=== PATIENT | male | born 1975 | race Two or more races ===

== ENCOUNTER → 2016-12-11 | Outpatient (REF) | payer OTHER ==
[2016-12-11 10:47] LABS: BASO % 0.5 % (0.0-1.0); EOS # 0.1 K/mm3 (0.0-0.50); EOS % 2.3 % (0.0-3.0); LARGE UNSTAINED CELL # 0.1 K/mm3 (0.0-0.4); LARGE UNSTAINED CELL % 2.2 % (0.0-4.0); LYMPH # 1.7 K/mm3 (1.5-4.5); LYMPH % 26.5 % (24.0-44.0); MEAN CORPUSCULAR HEMOGLOBIN 29.1 pg (27.0-33.0); MEAN CORPUSCULAR HGB CONC 33.7 g/dl (32.0-36.5); MEAN CORPUSCULAR VOLUME 86.2 fl (80.0-96.0); MONO # 0.5 K/mm3 (0.0-0.8); MONO % 7.9 % (0.0-5.0); NEUTROPHILS # 3.5 K/mm3 (1.8-7.7); NEUTROPHILS % 60.7 % (36.0-66.0); PLATELET COUNT, AUTOMATED 226 k/mm3 (150-450); RED CELL DISTRIBUTION WIDTH 12.8 % (11.5-14.5); WHITE BLOOD COUNT 5.8 K/mm3 (4.0-10.0)
[2016-12-11 10:59] LABS: ALBUMIN 3.8 GM/DL (3.2-5.2); ALBUMIN/GLOBULIN RATIO 1.27 (1.00-1.93); ALKALINE PHOSPHATASE 64 U/L (45-117); ALT/SGPT 45 U/L (12-78); ANION GAP 8 MEQ/L (8-16); AST/SGOT 15 U/L (15-37); BILIRUBIN,TOTAL 0.4 MG/DL (0.2-1.0); BLOOD UREA NITROGEN 19 MG/DL (7-18); CALCIUM LEVEL 8.9 MG/DL (8.5-10.1); CARBON DIOXIDE LEVEL 28 MEQ/L (21-32); CHLORIDE LEVEL 106 MEQ/L (98-107); CHOLESTEROL LEVEL 159 MG/DL (<200); CREATININE FOR GFR 1.01 MG/DL (0.70-1.30); GLOMERULAR FILTRATION RATE > 60.0 (>60); GLUCOSE, FASTING 88 MG/DL (70-105); POTASSIUM SERUM 4.3 MEQ/L (3.5-5.1); SODIUM LEVEL 142 MEQ/L (136-145); TOTAL PROTEIN 6.8 GM/DL (6.4-8.2); TRIGLYCERIDES LEVEL 139 MG/DL (<150)
== END ==
LOC: M SFHCPLAZ 08:44
PROVIDERS: ATTEND Physician Assistant
DX: R53.83 Other fatigue (principal); Z13.220 Encounter for screening for lipoid disorders

== ENCOUNTER → 2017-02-22 | Outpatient (CLI) | payer OTHER ==
--- NOTE | 2017-03-04 08:13 | SLEEPCENT ---
DATE OF PROCEDURE: 02/22/2017 ORDERED BY: ZOHRA Corbin Nocturnal polysomnography was performed for the titration of pressure therapy in this patient with obstructive sleep apnea syndrome, apnea hypopnea index of 10. For testing, the patient was fit with a Vides and [place], Simplus full face mask of medium size. 4 cm of water were applied to the circuit and the lights were extinguished. 7 hours and 15 minutes of data were reviewed. There were 353 minutes of sleep identified. Sleep latency was prolonged at 54 minutes. Rapid eye movement (REM) latency was mildly prolonged at 105 minutes. Sleep architecture improved with pressure therapy. There 2 REM periods appreciated. Overall sleep efficiency was 82%. EKG showed a sinus rhythm with an average heart rate of 60 beats per minute. EEG showed normal waveforms for awake and sleep. Respiratory events were best palliated with CPAP at pressure of +8. Remaining measures of sleep physiology were normal. IMPRESSION: Obstructive sleep apnea syndrome (G47.33). RECOMMENDATION: Nightly use of pressure therapy 8 cm of water.
== END ==
LOC: M SLEEP 20:00
PROVIDERS: ATTEND Nurse Practitioner Adult Health
DX: G47.33 Obstructive sleep apnea (adult) (pediatric) (principal)

== ENCOUNTER → 2017-11-27 | Outpatient (REF) | payer OTHER ==
[2017-11-27 15:41] LABS: ESTIMATED AVERAGE GLUCOSE 117 MG/DL (60-110); HEMOGLOBIN A1c 5.7 %
== END ==
LOC: M SFHCPLAZ 09:26
DX: Z00.00 Encounter for general adult medical examination without abnormal findings (principal)
CPT/HCPCS: 83036

== ENCOUNTER → 2018-05-01 | Outpatient (CLI) | payer OTHER | LOC: M WUC 16:26 | DX: M25.522 Pain in left elbow (principal) | CPT/HCPCS: 73080 ==

== ENCOUNTER → 2019-02-19 | Outpatient (CLI) | payer OTHER ==
--- NOTE | 2019-02-19 19:53 | REP ---
Clinical: Trauma. Crush injury second digit. Technique: AP, lateral, bilateral oblique views right second digit . Findings: The osseous structures and joint spaces are intact and normal. There is no evidence for acute fracture or dislocation. Surrounding soft tissues are unremarkable. No subcutaneous emphysema or radiodense foreign body. Impression: No acute fracture or dislocation. Electronically Signed by Vidal Trotter MD 02/19/2019 07:44 P
== END ==
LOC: M WUC 19:06
PROVIDERS: ATTEND Physician Assistant
DX: S67.191A Crushing injury of left index finger, initial encounter (principal); X58.XXXA Exposure to other specified factors, initial encounter; Y92.9 Unspecified place or not applicable

== ENCOUNTER 2019-04-17 17:06 | Emergency (ER) | payer OTHER ==
[~2019-04-17] VITALS: Ht 182.9 cm; Wt 107.2 kg
[2019-04-17] MEDS ORDERED: NS 1,000 ML IV ONE (18:00)
[2019-04-17] MEDS ORDERED: KETOROLAC 30 MG/ML VIAL (J1885) IV ONE (18:00)
[2019-04-17 18:32] LABS: BASO % 0.3 % (0.0-1.0); EOS # 0.1 10^3/uL (0.0-0.50); EOS % 0.6 % (0.0-3.0); HEMATOCRIT 42.5 % (42.0-52.0); HEMOGLOBIN 14.1 g/dl (13.5-17.5); LYMPH # 1.3 10^3/uL (1.5-4.5); LYMPH % 11.4 % (24.0-44.0); MEAN CORPUSCULAR HEMOGLOBIN 28.5 pg (27.0-33.0); MEAN CORPUSCULAR HGB CONC 33.2 g/dl (32.0-36.5); MONO # 0.9 10^3/uL (0.0-0.8); MONO % 7.9 % (0.0-5.0); NEUTROPHILS # 8.9 10^3/uL (1.8-7.7); NEUTROPHILS % 79.4 % (36.0-66.0); PLATELET COUNT, AUTOMATED 216 10^3/uL (150-450); RED BLOOD COUNT 4.94 10^6/uL (4.30-6.10); WHITE BLOOD COUNT 11.2 10^3/uL (4.0-10.0)
[2019-04-17] MEDS ORDERED: ISOVUE-370 76% 100ML VIAL (Q9967) As Ordered ONE (18:35)
[2019-04-17 19:26] VITALS: BP 124/62
--- NOTE | 2019-04-17 19:34 | REPVR ---
EXAM: CT Abdomen and Pelvis With Contrast EXAM DATE/TIME: 04/17/2019 6:37 PM CLINICAL HISTORY: 43 years old, male; Constipation; Abdominal pain; Other: Llq; Additional info: Llq/groin pain with constipation TECHNIQUE: Imaging protocol: Axial computed tomography images of the abdomen and pelvis with intravenous contrast. Coronal and sagittal reformatted images were created and reviewed. Radiation optimization: All CT scans at this facility use at least one of these dose optimization techniques: automated exposure control; mA and/or kV adjustment per patient size (includes targeted exams where dose is matched to clinical indication); or iterative reconstruction. Contrast material: ISOVUE 370;Contrast volume: 100 ml;Contrast route: IV; COMPARISON: CR Pelvis, complete 08/31/2014 10:02 AM FINDINGS: Lungs: Linear stranding and groundglass at the lung bases, likely due to atelectasis and/or scarring. Liver: Unremarkable. Gallbladder and bile ducts: No radiodense gallstones. No biliary ductal dilatation. Pancreas: Unremarkable. Spleen: Unremarkable. Adrenals: Unremarkable. Kidneys and ureters: 6 mm low density left renal lesion, too small to characterize. No radiodense calculi. No hydronephrosis. Stomach and bowel: Focal area of wall thickening and associated pericolonic stranding in the sigmoid colon in a region containing multiple diverticula. No obstruction. No pneumatosis. Appendix: Normal. Intraperitoneal space: Trace nonspecific free pelvic fluid, likely reactive. No organized fluid collection. No free air. Vasculature: Unremarkable. No aneurysm. Lymph nodes: No pathologically enlarged lymph nodes. Bladder: Unremarkable. Reproductive: Unremarkable. Bones/joints: No acute osseous abnormality. Mild degenerative changes. Soft tissues: Unremarkable. IMPRESSION: 1. Acute sigmoid diverticulitis. No abscess, obstruction or free air. Follow-up to resolution is recommended. 2. Additional findings, as above. COMMENT: Consistent with the [place] [employer]'s Incidental Findings Committee Report (J Am Pj Radiol 2010): Unless the patient's specific circumstances suggest otherwise, any liver lesion 0.5 cm or less, any cystic kidney lesion less than 1.0 cm, and/or any adrenal lesion 1.0 cm or less not otherwise characterized in this report as possessing suspicious or indeterminate imaging features is/are highly likely to be benign and do not require follow-up imaging or biopsy. Electronically signed by: Avi Amaya On 04/17/2019 19:34:22 PM
--- NOTE | 2019-04-17 19:50 | ED PDOC ---
Post-Departure Follow-Up dr fran betancourt faxed formal report of ct abd.p for fu Briana Meyer MD Apr 17, 2019 19:50
[2019-04-17] MEDS ORDERED: CIPR-249 PO (19:51)
[2019-04-17] MEDS ORDERED: FLAG500T PO (19:51)
[2019-04-17] MEDS ORDERED: ZOFR4TAB16 PO (19:51)
[2019-04-17] MEDS ORDERED: CIPROFLOXACIN 500 MG TAB PO ONE (20:30)
[2019-04-17] MEDS ORDERED: metroNIDAZOLE (FLAGYL) 500 MG TAB PO ONE (20:30)
== END 2019-04-17 20:33 | disposition home or self-care (01) ==
LOC: M ED 17:06
DX: K57.92 Diverticulitis of intestine, part unspecified, without perforation or abscess without bleeding (principal); F17.220 Nicotine dependence, chewing tobacco, uncomplicated
CPT/HCPCS: 36415; 74177; 80047; 83605; 85025; 96361; 96374; 99284; J1885; Q9967

== ENCOUNTER → 2020-09-13 | Outpatient (REF) | payer OTHER ==
[~2020-09-13] MED LIST: CIPR-249 PO; FLAG500T PO; ZOFR4TAB16 PO
[2020-09-13 15:50] LABS: BASO # 0.1 10^3/uL (0.0-0.2); BASO % 0.4 % (0.0-1.0); EOS # 0.1 10^3/uL (0.0-0.5); EOS % 0.8 % (0.0-3.0); HEMATOCRIT 47.5 % (42.0-52.0); HEMOGLOBIN 15.5 g/dl (13.5-17.5); LYMPH # 1.3 10^3/uL (1.5-5.0); LYMPH % 9.7 % (24.0-44.0); MEAN CORPUSCULAR HEMOGLOBIN 28.8 pg (27.0-33.0); MEAN CORPUSCULAR HGB CONC 32.6 g/dl (32.0-36.5); MEAN CORPUSCULAR VOLUME 88.1 fl (80.0-96.0); MONO # 1.3 10^3/uL (0.0-0.8); NEUTROPHILS # 11.1 10^3/uL (1.5-8.5); NEUTROPHILS % 79.7 % (36.0-66.0); PLATELET COUNT, AUTOMATED 236 10^3/uL (150-450); RED BLOOD COUNT 5.39 10^6/uL (4.30-6.10); WHITE BLOOD COUNT 13.9 10^3/uL (4.0-10.0)
[2020-09-13 15:54] LABS: ALBUMIN 3.9 GM/DL (3.2-5.2); ALT/SGPT 32 U/L (12-78); BILIRUBIN,TOTAL 0.8 MG/DL (0.2-1.0); BLOOD UREA NITROGEN 16 MG/DL (7-18); C REACTIVE PROTEIN QUANTITATIV 6.23 MG/DL (0.00-0.30); CALCIUM LEVEL 8.8 MG/DL (8.5-10.1); CARBON DIOXIDE LEVEL 31 MEQ/L (21-32); CHLORIDE LEVEL 103 MEQ/L (98-107); CREATININE FOR GFR 1.12 MG/DL (0.70-1.30); GLOMERULAR FILTRATION RATE > 60.0 (>60); GLUCOSE, FASTING 118 MG/DL (70-100); POTASSIUM SERUM 3.9 MEQ/L (3.5-5.1); SODIUM LEVEL 138 MEQ/L (136-145)
== END ==
LOC: M SFHCPLAZ 13:33
PROVIDERS: ATTEND Nurse Practitioner Family
DX: R10.32 Left lower quadrant pain (principal)
CPT/HCPCS: 36415; 80053; 85025; 86140; G0463

== ENCOUNTER 2021-04-29 16:38 | Emergency (ER) | payer OTHER ==
[~2021-04-29] VITALS: Ht 182.9 cm; Wt 103.2 kg
[2021-04-29 17:36] LABS: BASO % 0.3 % (0.0-1.0); EOS # 0.1 10^3/uL (0.0-0.5); EOS % 0.7 % (0.0-3.0); HEMATOCRIT 51.7 % (42.0-52.0); HEMOGLOBIN 16.7 g/dl (13.5-17.5); LYMPH % 6.9 % (24.0-44.0); MEAN CORPUSCULAR HEMOGLOBIN 28.5 pg (27.0-33.0); MEAN CORPUSCULAR HGB CONC 32.3 g/dl (32.0-36.5); MEAN CORPUSCULAR VOLUME 88.4 fl (80.0-96.0); MONO # 0.6 10^3/uL (0.0-0.8); NEUTROPHILS # 13.3 10^3/uL (1.5-8.5); NEUTROPHILS % 87.8 % (36.0-66.0); PLATELET COUNT, AUTOMATED 201 10^3/uL (150-450); RED BLOOD COUNT 5.85 10^6/uL (4.30-6.10); WHITE BLOOD COUNT 15.2 10^3/uL (4.0-10.0)
[2021-04-29] MEDS ORDERED: MORPHINE 4 MG/ML 1ML VIAL/SYRINGE (J2270) IV ONE ×2 (18:00→18:35)
[2021-04-29] MEDS ORDERED: NS 1,000 ML IV ONE (18:00)
[2021-04-29] MEDS ORDERED: ONDANSETRON 4MG/2ML VIAL IV ONE (18:00)
[2021-04-29] MEDS ORDERED: ISOVUE-370 76% 100ML VIAL As Ordered ONE (18:06)
[2021-04-29 18:09] LABS: ALBUMIN 3.8 GM/DL (3.2-5.2); ALT/SGPT 43 U/L (12-78); BILIRUBIN,DIRECT < 0.1 MG/DL (0.0-0.2); BILIRUBIN,TOTAL 0.2 MG/DL (0.2-1.0); LIPASE 133 U/L (73-393); TOTAL PROTEIN 7.1 GM/DL (6.4-8.2)
--- NOTE | 2021-04-29 18:31 | REP ---
INDICATION: r/o free air, perf. COMPARISON: Abdomen/pelvis CT dated 04/17/2019. TECHNIQUE: Single PA view of the chest and supine and upright views of the abdomen. FINDINGS: PA chest: Lung mandujano are clear. Cardiac size is normal. The dunia, mediastinum, and skeletal structures are unremarkable. There is no free subdiaphragmatic air. Abdomen, supine and upright views: There is no bowel distention or obstruction. There are a few air-fluid levels in nondistended bowel loops on the right, possibly focal ileus. There are no calcifications. The skeletal and soft tissue structures otherwise are unremarkable. IMPRESSION: There is no free subdiaphragmatic air. Negative PA chest. Question focal ileus in the few small bowel loops on the right. <Electronically signed by Ben Justice > 04/29/21 [id number]
--- NOTE | 2021-04-29 19:36 | REPVR ---
PROCEDURE INFORMATION: Exam: CT Abdomen And Pelvis With Contrast Exam date and time: 04/29/2021 6:08 PM Age: 45 years old Clinical indication: Abdominal pain; Additional info: Llq abd pain, peritonitis, elev wbc, HX divertic TECHNIQUE: Imaging protocol: Computed tomography of the abdomen and pelvis with contrast. Radiation optimization: All CT scans at this facility use at least one of these dose optimization techniques: automated exposure control; mA and/or kV adjustment per patient size (includes targeted exams where dose is matched to clinical indication); or iterative reconstruction. Contrast material: ISOVUE 370; Contrast volume: 100 ml; Contrast route: INTRAVENOUS (IV); COMPARISON: CT ABD/PEL W/IV CONTRAST ONLY 04/17/2019 6:36 PM FINDINGS: Mediastinal space: A small to moderate hiatal hernia is present. Liver: Normal. No mass. Gallbladder and bile ducts: Normal. No calcified stones. No ductal dilation. Pancreas: Normal. No ductal dilation. Spleen: There is mild splenomegaly with a maximum span of 13.3 centimeters. No focal abnormalities demonstrated. Adrenal glands: Normal. No mass. Kidneys and ureters: Normal. No hydronephrosis. Stomach and bowel: Long segment inflammatory changes demonstrated in the left and sigmoid colon with multiple diverticuli. Differential diagnosis includes long segment diverticulitis versus segmental colitis. No drainable abscess demonstrated. Minimal fluid demonstrated in the left paracolic gutter. Appendix: No evidence of appendicitis. Intraperitoneal space: There is a small amount of free intraperitoneal fluid present. Vasculature: The aortoiliac vessels demonstrate mild atherosclerotic calcification. Lymph nodes: Unremarkable. No enlarged lymph nodes. Urinary bladder: Unremarkable as visualized. Reproductive: Unremarkable as visualized. Bones/joints: Unremarkable. No acute fracture. Soft tissues: Unremarkable. IMPRESSION: 1. There is mild splenomegaly with a maximum span of 13.3 centimeters. No focal abnormalities demonstrated. 2. A small to moderate hiatal hernia is present. 3. There is a small amount of free intraperitoneal fluid present. 4. Long segment inflammatory changes demonstrated in the left and sigmoid colon with multiple diverticuli. Differential diagnosis includes long segment diverticulitis versus segmental colitis. No drainable abscess demonstrated. Minimal fluid demonstrated in the left paracolic gutter. Electronically signed by: Nash Galaviz On 04/29/2021 19:35:30 PM
[2021-04-29] MEDS ORDERED: CIPROFLOXACIN 500MG TABLET PO ONE (20:25)
[2021-04-29] MEDS ORDERED: ONDANSETRON 4 MG ORAL DISINTEGRATING TAB PO ONE (20:25)
[2021-04-29] MEDS ORDERED: metroNIDAZOLE (FLAGYL) 500MG TABLET PO ONE (20:25)
[2021-04-29] MEDS ORDERED: NORCO 5/325MG TABLET (BULK FOR ED) PO ONE (20:25)
[2021-04-29] MEDS ORDERED: ONDA4TAB6 PO (20:26)
[2021-04-29] MEDS ORDERED: CIPR-249 PO (20:26)
[2021-04-29] MEDS ORDERED: FLAG500T PO (20:26)
[2021-04-29] MEDS ORDERED: HYDR-3713 PO (20:29)
[2021-04-29 20:47] VITALS: BP 144/86
== END 2021-04-29 20:49 | disposition home or self-care (01) ==
LOC: M ED 16:38
DX: K57.92 Diverticulitis of intestine, part unspecified, without perforation or abscess without bleeding (principal)
CPT/HCPCS: 74021; 74177; 80047; 80076; 81001; 83605; 83690; 85025; 96361; 96374; 96375; 96376; 99284; J2270; J2405; Q0162; Q9967

== ENCOUNTER 2021-05-01 15:06 | Inpatient (IN) | payer OTHER ==
[~2021-05-01] VITALS: Ht 182.9 cm; Wt 103.5 kg
[~2021-05-01 15:06] MED LIST changes: +HYDR-3713 PO; +ONDA4TAB6 PO
[2021-05-01] MEDS ORDERED: MORPHINE 4 MG/ML 1ML VIAL/SYRINGE (J2270) IV ONE ×2 (19:05→22:10)
[2021-05-01] MEDS ORDERED: NS 1,000 ML IV ONE (19:05)
[2021-05-01 20:01] LABS: BASO % 0.2 % (0.0-1.0); EOS % 0.1 % (0.0-3.0); HEMATOCRIT 50.3 % (42.0-52.0); HEMOGLOBIN 16.5 g/dl (13.5-17.5); LYMPH % 5.4 % (24.0-44.0); MEAN CORPUSCULAR HEMOGLOBIN 28.2 pg (27.0-33.0); MEAN CORPUSCULAR HGB CONC 32.8 g/dl (32.0-36.5); MONO # 0.9 10^3/uL (0.0-0.8); MONO % 4.8 % (2.0-8.0); NEUTROPHILS # 16.9 10^3/uL (1.5-8.5); NEUTROPHILS % 88.7 % (36.0-66.0); PLATELET COUNT, AUTOMATED 257 10^3/uL (150-450); RED BLOOD COUNT 5.85 10^6/uL (4.30-6.10)
[2021-05-01] MEDS ORDERED: NS 2,050 ML in IV 1 EA IV ONE (20:05)
[2021-05-01] MEDS ORDERED: PIPERACILLIN/TAZOBACTAM SOD 4.5 GM in D5W MINI-BAG PLUS 50 ML IV ONE (20:05)
[2021-05-01] MEDS ORDERED: ISOVUE-370 76% 100ML VIAL As Ordered ONE (20:08)
[2021-05-01 20:31] LABS: ALBUMIN 3.5 GM/DL (3.2-5.2); BILIRUBIN,DIRECT 0.3 MG/DL (0.0-0.2); BILIRUBIN,TOTAL 1.1 MG/DL (0.2-1.0); TOTAL PROTEIN 7.4 GM/DL (6.4-8.2)
[2021-05-01] MEDS ORDERED: cefTRIAXone SOD 2 GM in D5W MINI-BAG PLUS 50 ML IV ONE (20:35)
[2021-05-01] MEDS ORDERED: CIPR-249 PO (20:59)
[2021-05-01] MEDS ORDERED: FLAG500T PO (20:59)
[2021-05-01] MEDS ORDERED: ONDA4TAB6 PO (20:59)
[2021-05-01] MEDS ORDERED: HYDR-4571 PO (20:59)
[2021-05-01] MEDS ORDERED: HOME MED LIST COMPLETE! XX SCH (21:00)
--- NOTE | 2021-05-01 21:31 | REPVR ---
PROCEDURE INFORMATION: Exam: CT Abdomen And Pelvis With Contrast Exam date and time: 05/01/2021 8:12 PM Age: 45 years old Clinical indication: Abdominal pain; Localized; Left upper quadrant (luq); Additional info: Llq pain worsening to diffuse abd pain, h/o diverticulitis TECHNIQUE: Imaging protocol: Computed tomography of the abdomen and pelvis with contrast. Radiation optimization: All CT scans at this facility use at least one of these dose optimization techniques: automated exposure control; mA and/or kV adjustment per patient size (includes targeted exams where dose is matched to clinical indication); or iterative reconstruction. Contrast material: ISOVUE 370; Contrast volume: 100 ml; Contrast route: INTRAVENOUS (IV); COMPARISON: CT ABD/PEL W/IV CONTRAST ONLY 04/29/2021 6:07 PM FINDINGS: Lungs: Increasing dependent airspace opacities in the lung bases. Liver: Unremarkable. No mass. Gallbladder and bile ducts: Normal. No calcified stones. No ductal dilation. Pancreas: Normal. No ductal dilation. Spleen: Normal. No splenomegaly. Adrenal glands: Normal. No mass. Kidneys and ureters: Unremarkable. No calculi or hydronephrosis. Stomach and bowel: Wall thickening and diverticular inflammation in the sigmoid colon and distal descending colon, similar to the prior exam. Colon is mildly distended with intraluminal fluid. The small bowel is dilated with air and fluid with mild mucosal enhancement. No obstructing mass. Distal small bowel is decompressed without a discrete transition point. Appendix: No evidence of appendicitis. Intraperitoneal space: Pelvic free fluid has slightly increased. No loculated abscess or free air. Retroperitoneal space: Inflammatory changes and edema in the pelvis and retroperitoneum, not significantly changed. Vasculature: Unremarkable. No abdominal aortic aneurysm. Lymph nodes: Unremarkable. No enlarged lymph nodes. Urinary bladder: Unremarkable as visualized. Reproductive: Unremarkable as visualized. Bones/joints: Unremarkable. No acute fracture. Soft tissues: Unremarkable. IMPRESSION: 1. Persistent changes of diverticulitis in the sigmoid colon. Pelvic free fluid has increased slightly. No loculated abscess or pneumoperitoneum. 2. Fluid distention of the colon and small bowel suggesting an ileus or viral ileocolitis. Electronically signed by: Jasmeet Boyd On 05/01/2021 21:30:35 PM
[2021-05-01 22:15] LABS: RSV AMPLIFICATION NEGATIVE (NEGATIVE)
[2021-05-01] MEDS ORDERED: KETOROLAC 30 MG/ML 1ML VIAL IV SCH (23:00)
--- NOTE | 2021-05-01 23:14 | HPEPDOC ---
[facility] Medical History & Physical Date of Admission May 01, 2021 Date of Service: May 01, 2021 History and Physical CHIEF COMPLAINT: LLQ abdominal pain HISTORY OF PRESENT ILLNESS: 45-year-old male with a past medical history of recurrent diverticulitis presents to the ER with a weeklong history of left lower quadrant abdominal pain. He was recently seen on 04/29/21 with the same symptoms. CT scan showing likely diverticulitis/colitis. Patient was discharged with a course of Cipro, ofloxacin and Flagyl along with pain control with [place], but returns because of worsening pain as well as nausea. Patient also states he hasn't had a bowel movement since last ER visit. Patient has white count of 19, low-grade temperature of 99.5. Reticulocyte acid 1.1. Noted to have elevated bilirubin of 1.1 with a direct bilirubin of 0.3. Lipase 72. Dr. Nuñez was consulted from the ER. Patient was treated with sepsis protocol. Started on IV Zosyn as well as 3 L of sodium chloride bolus. Dr. Nuñez also recommended a one-time dose of ceftriaxone. Patient will be admitted to hospitalist service for the management of sepsis and diverticulitis. PAST MEDICAL HISTORY: hx of recurrent diverticulitis, no prior colonoscopies PAST SURGICAL HISTORY: inguinal hernia repair R ankle fx repair L knee surgery SOCIAL HISTORY: denies etoh use denies smoking denies illicit drug use FAMILY HISTORY: prostate cancer ALLERGIES: Please see below. REVIEW OF SYSTEMS: 10 point ROS, relevant findings are noted in the HPI. HOME MEDICATIONS: Please see below. PHYSICAL EXAMINATION: VITAL SIGNS: please see below General: NAD, comfortable HEENT: PERRLA, EOMI, sclerae clear Neck: supple, normal ROM, no JVD Respiratory: lungs CTAB, no wheeze, no rales, no crackles CVS: RRR, normal S1, S2, no murmurs Abdo: LLQ pain to palpation 8/10, no guarding, no rigidity, no organomegaly. Extremities: no edema, pulses 2+ MSK: no joint deformities, normal ROM Neuro: no focal neuro deficits, moving all 4 extremities, CN2-12 intact. Strength 5/5 in all 4 extremities. No nystagmus. Psych: calm, cooperative, AAO x 3 LABORATORY DATA: See below. IMAGING: CT abdo pelvis w IV contrast (05/01/21): IMPRESSION: 1. Persistent changes of diverticulitis in the sigmoid colon. Pelvic free fluid has increased slightly. No loculated abscess or pneumoperitoneum. 2. Fluid distention of the colon and small bowel suggesting an ileus or viral MICROBIOLOGY: Please see below. ASSESSMENT: 45-year-old male with a history of recurrent diverticulitis initially treated on 04/29 with a course of by mouth Cipro and Flagyl returning fo r worsening pain and vomiting. CT scan showing findings consistent with diverticulitis in the sigmoid colon as well as possible ileus. Dr. Nuñez consulted from the ER. Patient admitted with sepsis secondary diverticulitis. Currently being treated with IV Zosyn. Will be placed on bowel rest for now. PLAN: # Sepsis 2/2 recurrent diverticulitis: failed treatment with PO cipro and flagyl. tachycardic, WBC 19. S/p 3L NS bolus. Worsening pain, vomiting. S/p 1 dose ceftriaxone in ER. c/w IV zosyn. c/w IVF NS at 125 cc/hr. Bowel rest. Pain control morphine. Will need colonscopy 4-6 weeks after DC. Has had prior episode of diverticulitis with no follow up colonoscopy. #Suspected ileus: per CT findings. C/w no BM x 3 days. On norco for pain control. Dr. Nuñez following. Bowel rest. #DVT ppx: SCDs. DARRELL. Heparin. Dispo: anticipate admission to span > 2 midnights. DC pending clinical impro vement. Vital Signs Vital Signs Date Time Temp Pulse Resp B/P (MAP) Pulse Ox O2 Delivery O2 Flow Rate FiO2 05/01/21 22:32 20 05/01/21 19:13 99.5 114 123/72 (89) 96 Room Air Laboratory Data Labs 24H Laboratory Tests 2 05/01/21 19:44: Immature Granulocyte % (Auto) 0.8, Neutrophils (%) (Auto) 88.7H, Lymphocytes (%) (Auto) 5.4L, Monocytes (%) (Auto) 4.8, Eosinophils (%) (Auto) 0.1, Basophils (%) (Auto) 0.2, Neutrophils # (Auto) 16.9H, Lymphocytes # (Auto) 1.0L, Monocytes # (Auto) 0.9H, Eosinophils # (Auto) 0.0, Basophils # (Auto) 0.0, Nucleated Red Blood Cells % (auto) 0.0, Urine Color [place], Urine Appearance CLOUDYH, Urine pH 5.0, Urine Specific [place] 1.040, Urine Protein 3+H, Urine Glucose (UA) 1+H, Urine Ketones 1+H, Urine Blood 1+H, Urine Nitrite NEGATIVE, Urine Bilirubin 1+H, Urine Urobilinogen 2.0H, Urine Leukocyte Esterase TRACEH, Urine WBC (Auto) 5H, Urine RBC (Auto) 5H, Urine Hyaline Casts (Auto) 5, Urine Bacteria (Auto) NEGATIVE, Urine Squamous Epithelial Cells 2, Urine Granular Casts (Auto) 5, Urine Mucus (Auto) LARGE, Urine Sperm (Auto) , Lactic Acid Level 1.1, Total Bilirubin 1.1#H, Direct Bilirubin 0.3H, Aspartate Amino Transf (AST/SGOT) 11, Alanine Aminotransferase (ALT/SGPT) 25, Alkaline Phosphatase 72, Total Creatine Kinase 53, Total Protein 7.4, Albumin 3.5, Albumin/Globulin Ratio 0.9, Amylase Level 28, Lipase 72L 05/01/21 19:49: POC Glucose (Misc Panel) 122H, POC Sodium (Misc Panel) 136, POC Potassium (Misc Panel) 3.7, POC Chloride (Misc Panel) 100, POC Total CO2 (Misc Panel) 22.0L, POC Blood Urea Nitrogen (Misc Panel 27H, POC Ionized Calcium (Misc Panel) 4.4L, POC Creatinine (Misc Panel) 1.1, POC Hematocrit (Misc Panel) 52.0H 05/01/21 20:55: Coronavirus (COVID-19)(PCR) NEGATIVE, Influenza Type A (RT-PCR) NEGATIVE, Influenza Type B (RT-PCR) NEGATIVE, Respiratory Syncytial Virus (PCR) NEGATIVE CBC/BMP Laboratory Tests 05/01/21 19:44 Microbiology Microbiology 05/01/21 Urine Culture, Received Pending 05/01/21 Blood Culture, Received Pending 05/01/21 Blood Culture, Received Pending Home Medications Scheduled Ciprofloxacin HCl (Cipro) 500 Mg Tablet, 500 MG PO BID STARTED ON 04/30/21 Metronidazole (Flagyl) 500 Mg Tablet, 500 MG PO Q8H STARTED ON 04/30/21 Scheduled PRN Hydrocodone/Acetaminophen (Hydrocodone-Acetamin 5-325 mg) 1 Each Tablet, 1 TAB PO Q6H PRN for PAIN LEVEL 6-10 Ondansetron (Ondansetron Odt) 4 Mg Tab.rapdis, 4 MG PO Q6H PRN for NAUSEA OR VOMITING Allergies Coded Allergies: No Known Allergies (Unverified , 04/17/19) AIDEE WETZEL MD May 01, 2021 23:14
[2021-05-01] MEDS ORDERED: ACETAMINOPHEN TAB 650MG DOSE (2X325MG) PO PRN (23:15)
[2021-05-02 01:54] VITALS: BP 140/78
[2021-05-02] MEDS: NS 1,000 ML IV SCH ×4 (02:11→21:05)
[2021-05-02] MEDS: PIPERACILLIN/TAZOBACTAM SOD 4.5 GM in D5W MINI-BAG PLUS 50 ML IV SCH ×4 (02:19→20:42)
[2021-05-02] MEDS: MORPHINE 2 MG/ML 1ML VIAL (J2270) IV PRN ×2 (02:20→14:40)
--- NOTE | 2021-05-02 03:40 | REPVR ---
PROCEDURE INFORMATION: Exam: US Abdomen, Limited; Right Upper Quadrant Exam date and time: 05/02/2021 1:38 AM Age: 45 years old Clinical indication: Abnormal findings; Abnormal lab test; Other: Hyperbilirubinemia TECHNIQUE: Imaging protocol: US abdomen. Real time ultrasound with image documentation. Limited exam focused on the right upper quadrant. COMPARISON: CT ABD/PEL W/IV CONTRAST ONLY 05/01/2021 8:10 PM FINDINGS: Liver: Liver is mildly enlarged at 19 cm. Normal liver echotexture. No liver masses. Gallbladder: Gallbladder is mildly distended. 4 mm gallbladder polyp. No gallbladder wall thickening or pericholecystic fluid. Common bile duct: No biliary duct dilation. Pancreas: The pancreas is not well visualized due to bowel gas. Right kidney: Right kidney is mildly echogenic. No hydronephrosis. Intraperitoneal space: Trace perihepatic ascites. IMPRESSION: 1. Mild hepatomegaly. Trace perihepatic ascites. 2. Mildly distended gallbladder. No signs of acute cholecystitis or biliary duct dilation. 3. Echogenic right kidney suggesting chronic medical renal disease. Electronically signed by: Jasmeet Boyd On 05/02/2021 03:40:04 AM
[2021-05-02] MEDS: HEPARIN SOD (PORCINE) 5000UNITS/ML 1ML VIAL/SYRINGE SC SCH ×3 (04:59→22:21)
[2021-05-02 05:21] LABS: HEMATOCRIT 42.4 % (42.0-52.0); MEAN CORPUSCULAR HEMOGLOBIN 28.1 pg (27.0-33.0); MEAN CORPUSCULAR HGB CONC 32.3 g/dl (32.0-36.5); MEAN CORPUSCULAR VOLUME 86.9 fl (80.0-96.0); PLATELET COUNT, AUTOMATED 208 10^3/uL (150-450); RED BLOOD COUNT 4.88 10^6/uL (4.30-6.10); WHITE BLOOD COUNT 13.7 10^3/uL (4.0-10.0)
[2021-05-02 05:27] LABS: HEMOGLOBIN 13.7 g/dl (13.5-17.5)
[2021-05-02 05:45] LABS: ALBUMIN 2.6 GM/DL (3.2-5.2); ALT/SGPT 19 U/L (12-78); BLOOD UREA NITROGEN 26 MG/DL (7-18); CALCIUM LEVEL 7.8 MG/DL (8.5-10.1); CARBON DIOXIDE LEVEL 25 MEQ/L (21-32); CHLORIDE LEVEL 106 MEQ/L (98-107); CREATININE FOR GFR 1.16 MG/DL (0.70-1.30); GLOMERULAR FILTRATION RATE > 60.0 (>60); GLUCOSE, FASTING 104 MG/DL (70-100); MAGNESIUM LEVEL 2.3 MG/DL (1.8-2.4); POTASSIUM SERUM 3.5 MEQ/L (3.5-5.1); SODIUM LEVEL 138 MEQ/L (136-145); TOTAL PROTEIN 5.9 GM/DL (6.4-8.2)
[2021-05-02 07:26] VITALS: BP 114/63
[2021-05-02] MEDS: KETOROLAC 30 MG/ML 1ML VIAL IV SCH ×3 (08:22→20:42)
--- NOTE | 2021-05-02 14:41 | IPNPDOC ---
Text Note Date of Service The patient was seen on 05/02/21. NOTE General surgery. Dr Nuñez The patient is a 45-year-old male admitted with diverticulitis 05/01/21. This morning, the patient states he does note some improvement in his abdominal pain. Reports flatus but no BM yet. Denies nausea or vomiting. Afebrile this morning, T-max 99.5. VSS Sitting up in bed awake and alert S1-S2 regular rate rhythm Lungs clear to auscultation Abdomen is soft, mildly distended, tenderness with palpation in the left lower quadrant with some grimacing, no guarding. No edema WBC 13.7. This is decreased from 19.0 yesterday. BC x 2 pending Assessment/plan Acute diverticulitis. The patient is reviewed by Dr. Nuñez NPO IVF IV antibiotics as per hospitalist Monitor VSStephanie, I+O VSStephanie, I+O Laboratory Tests 05/01/21 19:44 05/02/21 04:45 Vital Signs Date Time Temp Pulse Resp B/P (MAP) Pulse Ox O2 Delivery O2 Flow Rate FiO2 05/02/21 07:26 98.8 85 16 114/63 (80) 93 Room Air I&O- Last 24 Hours up to 6 AM 05/02/21 05:59 Intake Total 1050 ml Output Total 130 ml Balance 920 ml Hazel Cody May 02, 2021 09:23
[2021-05-02] MEDS: ONDANSETRON 4MG/2ML VIAL IV PRN ×2 (14:59→20:42)
--- NOTE | 2021-05-02 15:46 | IPNPDOC ---
Subjective Date Seen The patient was seen on 05/02/21. Subjective Chief Complaint/HPI Mr. Drew is a 45 year old male with history of recurrent diverticulitis who is here with acute diverticulitis. This morning, tells me that his abdominal pain is better. Abdominal tenderness in the left lower quadrant is still there. Denies any active chest pain or dyspnea. Objective Physical Examination General Exam: Positive: Alert, Cooperative Eye Exam: Positive: EOMI; Negative: Sclera icteric ENT Exam: Positive: Atraumatic Neck Exam: Positive: Supple Chest Exam: Positive: Clear to auscultation Heart Exam: Positive: Rate Normal, Regular Rhythm Abdomen Exam: Positive: Normal bowel sounds, Soft, Tenderness Extremity Exam: Negative: Edema Neuro Exam: Positive: Normal Speech Psych Exam: Positive: Mental status NL, Mood NL Assessment /Plan Assessment Mr. Drew is a 45 year old male with history of recurrent diverticulitis who is here with acute diverticulitis which failed outpatient PO ciprofloxacin and metronidazole. General surgery following. Recommending conservative measures at this time. Will continue with sips and chips and antibiotics. Plan/VTE VTE Prophylaxis Ordered?: Yes Plan 1. Sepsis 2/2 recurrent diverticulitis -On admission patient had tachycardia and WBC 19 -Patient was given 30mL/kg of IVF and antibiotics -Zosyn day 2 -General surgery recommending sips and chips and IV antibiotics 2. Suspected ileus -Seen on CT -No BM for 3 days prior to admission -Possibly secondary to norco -Supportive care 3. DVT ppx -Heparin Disposition: Pending improvement of abdominal pain/tenderness and leukocytosis VS, I&O, 24H, [facility] Vital Signs/I&O Vital Signs Date Time Temp Pulse Resp B/P (MAP) Pulse Ox O2 Delivery O2 Flow Rate FiO2 05/02/21 14:40 20 05/02/21 07:26 98.8 85 114/63 (80) 93 Room Air I&O- Last 24 Hours up to 6 AM 05/02/21 06:00 Intake Total 1050 ml Output Total 130 ml Balance 920 ml Laboratory Data 24H LABS Laboratory Tests 2 05/01/21 19:44: Immature Granulocyte % (Auto) 0.8, Neutrophils (%) (Auto) 88.7H, Lymphocytes (%) (Auto) 5.4L, Monocytes (%) (Auto) 4.8, Eosinophils (%) (Auto) 0.1, Basophils (%) (Auto) 0.2, Neutrophils # (Auto) 16.9H, Lymphocytes # (Auto) 1.0L, Monocytes # (Auto) 0.9H, Eosinophils # (Auto) 0.0, Basophils # (Auto) 0.0, Nucleated Red Blood Cells % (auto) 0.0, Urine Color GALILEO, Urine Appearance CLOUDYH, Urine pH 5.0, Urine Specific [place] 1.040, Urine Protein 3+H, Urine Glucose (UA) 1+H, Urine Ketones 1+H, Urine Blood 1+H, Urine Nitrite NEGATIVE, Urine Bilirubin 1+H, Urine Urobilinogen 2.0H, Urine Leukocyte Esterase TRACEH, Urine WBC (Auto) 5H, Urine RBC (Auto) 5H, Urine Hyaline Casts (Auto) 5, Urine Bacteria (Auto) NEGATIVE, Urine Squamous Epithelial Cells 2, Urine Granular Casts (Auto) 5, Urine Mucus (Auto) LARGE, Urine Sperm (Auto) , Lactic Acid Level 1.1, Total Bilirubin 1.1#H, Direct Bilirubin 0.3H, Aspartate Amino Transf (AST/SGOT) 11, Alanine Aminotransferase (ALT/SGPT) 25, Alkaline Phosphatase 72, Total Creatine Kinase 53, Total Protein 7.4, Albumin 3.5, Albumin/Globulin Ratio 0.9, Amylase Level 28, Lipase 72L 05/01/21 19:49: POC Glucose (Misc Panel) 122H, POC Sodium (Misc Panel) 136, POC Potassium (Misc Panel) 3.7, POC Chloride (Misc Panel) 100, POC Total CO2 (Misc Panel) 22.0L, POC Blood Urea Nitrogen (Misc Panel 27H, POC Ionized Calcium (Misc Panel) 4.4L, POC Creatinine (Misc Panel) 1.1, POC Hematocrit (Misc Panel) 52.0H 05/01/21 20:55: Coronavirus (COVID-19)(PCR) NEGATIVE, Influenza Type A (RT-PCR) NEGATIVE, Influenza Type B (RT-PCR) NEGATIVE, Respiratory Syncytial Virus (PCR) NEGATIVE 05/02/21 04:45: Nucleated Red Blood Cells % (auto) 0.0, Total Bilirubin 1.0, Aspartate Amino Transf (AST/SGOT) 9, Alanine Aminotransferase (ALT/SGPT) 19, Alkaline Phosphatase 62, Total Protein 5.9#L, Albumin 2.6#L, Albumin/Globulin Ratio 0.8, Anion Gap 7L, Glomerular Filtration Rate > 60.0, Calcium Level 7.8L, Magnesium Level 2.3 CBC/BMP Laboratory Tests 05/01/21 19:44 05/02/21 04:45 Microbiology Microbiology 05/01/21 Urine Culture - Final, Complete 05/01/21 Blood Culture, Received Pending 05/01/21 Blood Culture, Received Pending SUDEEP FRANCISCO DO May 02, 2021 15:46
[2021-05-02 16:00] VITALS: BP 121/70
[2021-05-02 20:00] VITALS: BP 133/76
[2021-05-02] MEDS ORDERED: PROMETHAZINE INJ 25 MG/ML VIAL (J2550) IV ONE (20:40)
--- NOTE | 2021-05-02 22:37 | REPVR ---
PROCEDURE INFORMATION: Exam: XR Abdomen Exam date and time: 05/02/2021 9:52 PM Age: 45 years old Clinical indication: Abdominal pain; Generalized; Additional info: Increased abdominal distention TECHNIQUE: Imaging protocol: XR of the abdomen. Views: Frontal supine view of the abdomen. 1 View. COMPARISON: 1. CT ABD/PEL W/IV CONTRAST ONLY 2021-05-01 20:[address] ABD/PEL W/IV CONTRAST ONLY 2021-04-29 18:07 3. CR Abdomen,Flat Upright,PA CHEST 2021-04-29 17:[address] ABD/PEL W/IV CONTRAST ONLY 2019-04-17 18:36 FINDINGS: Gastrointestinal tract: Gas-filled small bowel loops with paucity of small bowel gas in the right abdomen, evidence for small bowel obstruction with transition in the pelvis. Bones/joints: Unremarkable. IMPRESSION: Gas-filled small bowel loops with paucity of small bowel gas in the right abdomen, evidence for small bowel obstruction with transition in the pelvis. Electronically signed by: Daryl Moran On 05/02/2021 22:36:42 PM
--- NOTE | 2021-05-02 22:50 | IPNPDOC ---
Text Note Date of Service Significant event. 05/02/21. NOTE Notified patient with nausea and emesis 600 mL bilious-increasing abdominal tenderness/distention. Stat KUB shows small bowel obstruction plan for NG tube with low intermittent suction for decompression. NPO. Bowel rest and continue to monitor patient. Will defer need for specialty consult to attending. WCTM VS,Fishbone, I+O VS, Fishbone, I+O Laboratory Tests 05/02/21 04:45 Vital Signs Date Time Temp Pulse Resp B/P (MAP) Pulse Ox O2 Delivery O2 Flow Rate FiO2 05/02/21 20:00 98.0 83 15 133/76 (95) 91 Room Air I&O- Last 24 Hours up to 6 AM 05/02/21 06:00 Intake Total 1050 ml Output Total 130 ml Balance 920 ml CARISSA MENJIVAR NP May 02, 2021 22:50
[2021-05-03] VITALS: BP 111/61
--- NOTE | 2021-05-03 01:02 | REPVR ---
PROCEDURE INFORMATION: Exam: XR Chest Exam date and time: 05/03/2021 12:30 AM Age: 45 years old Clinical indication: Device placement; Ng tube; Additional info: Confirmation of ng tube TECHNIQUE: Imaging protocol: XR of the chest. Views: 1 view. COMPARISON: 1. CR Abdomen,Flat Upright,PA CHEST 2021-04-29 17:56 2. CR Abdomen,Flat Plate KUB 2021-05-02 21:[address] ABD/PEL W/IV CONTRAST ONLY 2021-05-01 20:[address] ABD/PEL W/IV CONTRAST ONLY 2021-04-29 18:07 FINDINGS: Tubes, catheters and devices: Nasal gastric tube tip and sidehole are within the stomach. Lungs: Unremarkable. No consolidation. Pleural spaces: Unremarkable. No pleural effusion. No pneumothorax. Heart/Mediastinum: Unremarkable. No cardiomegaly. Bones/joints: Unremarkable. IMPRESSION: Nasal gastric tube tip and sidehole are within the stomach. Electronically signed by: Daryl Moran On 05/03/2021 01:02:14 AM
[2021-05-03] MEDS ORDERED: CHLORASEPTIC SPRAY MT PRN (02:00)
[2021-05-03] MEDS: PIPERACILLIN/TAZOBACTAM SOD 4.5 GM in D5W MINI-BAG PLUS 50 ML IV SCH ×4 (02:07→21:29)
[2021-05-03] MEDS: MORPHINE 2 MG/ML 1ML VIAL (J2270) IV PRN (02:07)
[2021-05-03] MEDS: KETOROLAC 30 MG/ML 1ML VIAL IV SCH ×4 (03:49→21:30)
[2021-05-03 05:24] LABS: HEMATOCRIT 40.2 % (42.0-52.0); HEMOGLOBIN 12.9 g/dl (13.5-17.5); MEAN CORPUSCULAR HEMOGLOBIN 28.2 pg (27.0-33.0); MEAN CORPUSCULAR HGB CONC 32.1 g/dl (32.0-36.5); PLATELET COUNT, AUTOMATED 231 10^3/uL (150-450); RED BLOOD COUNT 4.57 10^6/uL (4.30-6.10); WHITE BLOOD COUNT 10.3 10^3/uL (4.0-10.0)
[2021-05-03 05:50] LABS: ALBUMIN 2.4 GM/DL (3.2-5.2); ALT/SGPT 15 U/L (12-78); BILIRUBIN,TOTAL 0.7 MG/DL (0.2-1.0); BLOOD UREA NITROGEN 32 MG/DL (7-18); CALCIUM LEVEL 7.8 MG/DL (8.5-10.1); CARBON DIOXIDE LEVEL 25 MEQ/L (21-32); CHLORIDE LEVEL 110 MEQ/L (98-107); GLOMERULAR FILTRATION RATE > 60.0 (>60); GLUCOSE, FASTING 98 MG/DL (70-100); MAGNESIUM LEVEL 2.4 MG/DL (1.8-2.4); POTASSIUM SERUM 3.6 MEQ/L (3.5-5.1); SODIUM LEVEL 141 MEQ/L (136-145); TOTAL PROTEIN 5.7 GM/DL (6.4-8.2)
[2021-05-03] MEDS: NS 1,000 ML IV SCH ×2 (06:15→17:56)
[2021-05-03] MEDS: HEPARIN SOD (PORCINE) 5000UNITS/ML 1ML VIAL/SYRINGE SC SCH (06:15)
[2021-05-03] MEDS ORDERED: PANTOPRAZOLE 40MG VIAL (C9113 PER 1) IV SCH (09:00)
--- NOTE | 2021-05-03 09:20 | IPNPDOC ---
Text Note Date of Service The patient was seen on 05/03/21. NOTE General surgery. Dr Nuñez The patient is a 45-year-old male admitted with diverticulitis 05/01/21. The patient had emesis last evening about 20 to 30 minutes after a small amount of broth, abdominal x-ray indicated evidence for SBO. NG tube was placed but removed early this morning. The patient states he still has left lower quadrant discomfort. He feels less bloated. Reports flatus but no BM. Afebrile. VSS Sitting up in bed awake and alert S1-S2 regular rate rhythm Lungs clear to auscultation Abdomen is soft, still mildly distended, tenderness with palpation in the left lower quadrant with some grimacing, no guarding. No edema WBC 10.3, this is decreased from 13.7 yesterday. BC x 2 negative. Assessment/plan Acute diverticulitis. The patient is reviewed with Dr. Nuñez Currently NPO, continue for now. IVF IV antibiotics as per hospitalist Monitor VS,Stephanie, I+O VS, Marivele, I+O Laboratory Tests 05/03/21 04:57 Vital Signs Date Time Temp Pulse Resp B/P (MAP) Pulse Ox O2 Delivery O2 Flow Rate FiO2 05/03/21 02:17 18 05/03/21 00:00 96.2 84 111/61 (78) 93 Room Air I&O- Last 24 Hours up to 6 AM 05/03/21 05:59 Intake Total 2320 ml Output Total 1850 ml Balance 470 ml Hazel Cody May 03, 2021 08:15
--- NOTE | 2021-05-03 09:58 | IPNPDOC ---
Subjective Date Seen The patient was seen on 05/03/21. Subjective Chief Complaint/HPI Mr. Drew is a 45 year old male with history of recurrent diverticulitis who is here with acute diverticulitis. Yesterday evening, patient was nauseous and vomited 600mL of fluid. KUB demonstrates SBO and he had an NGT placed. Patient was not able to tolerate NGT and pulled tube out. NGT was able to empty 150mL. Patient was seen with nurse later in the morning. Patient was about to have 1 BM. Otherwise, abdomen is mildly distended. Tenderness in the left lower quadrant. Bowel sounds low rumble, but present. Patient denies any chest pain or dyspnea. Objective Physical Examination General Exam: Positive: Alert, Cooperative Eye Exam: Positive: EOMI; Negative: Sclera icteric ENT Exam: Positive: Atraumatic Neck Exam: Positive: Supple Chest Exam: Positive: Clear to auscultation Heart Exam: Positive: Rate Normal, Regular Rhythm Abdomen Exam: Positive: Normal bowel sounds, Soft, Tenderness Extremity Exam: Negative: Edema Neuro Exam: Positive: Normal Speech Psych Exam: Positive: Mental status NL, Mood NL Assessment /Plan Assessment Mr. Drew is a 45 year old male with history of recurrent diverticulitis who is here with acute diverticulitis which failed outpatient PO ciprofloxacin and metronidazole. General surgery following. Recommending conservative measures at this time. Continue NPO and IV antibiotics Plan/VTE VTE Prophylaxis Ordered?: Yes Plan 1. Sepsis 2/2 recurrent diverticulitis -On admission patient had tachycardia and WBC 19 -Patient was given 30mL/kg of IVF and antibiotics -Zosyn day 2 -General surgery recommending sips and chips and IV antibiotics 2. Suspected ileus -Seen on CT -No BM for 3 days prior to admission -Possibly secondary to norco -Supportive care 3. GI ppx -Added on IV Protonix 4. DVT ppx -Heparin Disposition: Pending improvement of abdominal pain/tenderness and leukocytosis VS, I&O, 24H, Fishbone Vital Signs/I&O Vital Signs Date Time Temp Pulse Resp B/P (MAP) Pulse Ox O2 Delivery O2 Flow Rate FiO2 05/03/21 02:17 18 05/03/21 00:00 96.2 84 111/61 (78) 93 Room Air I&O- Last 24 Hours up to 6 AM 05/03/21 06:00 Intake Total 2320 ml Output Total 2200 ml Balance 120 ml Laboratory Data 24H LABS Laboratory Tests 2 05/03/21 04:57: Nucleated Red Blood Cells % (auto) 0.0, Anion Gap 6L, Glomerular Filtration Rate > 60.0, Calcium Level 7.8L, Magnesium Level 2.4, Total Bilirubin 0.7, Aspartate Amino Transf (AST/SGOT) 11, Alanine Aminotransferase (ALT/SGPT) 15, Alkaline Phosphatase 54, Total Protein 5.7L, Albumin 2.4L, Albumin/Globulin Ratio 0.7 CBC/BMP Laboratory Tests 05/03/21 04:57 Microbiology Microbiology 05/01/21 Urine Culture - Final, Complete 05/01/21 Blood Culture - Preliminary, Resulted No growth after 24 hours . All specim... 05/01/21 Blood Culture - Preliminary, Resulted No growth after 24 hours . All specim... SUDEEP FRANCISCO DO May 03, 2021 09:58
[2021-05-03] MEDS: PANTOPRAZOLE 40MG VIAL (C9113 PER 1) IV SCH (11:07)
[2021-05-03 12:33] VITALS: BP 120/69
--- NOTE | 2021-05-03 14:24 | CR ---
CONSULTATION DATE: 05/01/2021 HISTORY OF PRESENT ILLNESS: The patient is being admitted today for exacerbation of his diverticulitis. He has an elevated white count with some fluid in his abdomen and an ileus picture on his CT scan. There is no evidence of perforation at this time but came in because of persistent pain as well as nausea and with no bowel movements since he was seen several days ago. He has had a low-grade fever. PAST MEDICAL HISTORY: Significant for a history of diverticulitis, history of inguinal hernia repair, history of right ankle fracture repair, history of knee surgery. PHYSICAL EXAMINATION: Physical exam reveals a 45-year-old male who looks his stated age. HEENT is unremarkable. Neck is supple without adenopathy. Lungs are clear to auscultation. Heart is regular. Abdomen: He is distended. He is tympanitic and he has some tenderness mostly on the left side in the suprapubic area and more so in the left lower quadrant with guarding without significant rebound. Extremities were warm and well-perfused. IMPRESSION/PLAN: Patient has evidence of ongoing diverticulitis on his CT scan. He definitely has some significant inflammatory changes and given the fluid in the pelvis, suggests this may be reactive secondary to his ileus and I do recommend that he be NPO, IV fluids, IV antibiotics and keep him NPO for right now. Given the significance of his process, I anticipate this will be a little bit slower in the resolution than typically we see and I anticipate that he probably will not be improved enough in the next 12 to 24 hours to advance his diet and thus I would keep him NPO until he starts having some bowel movements and his abdominal distention improves. Otherwise, continue with his current treatment. If he has some persistent/progressive temperature increases as well as increasing pain, discomfort or increasing white count, I would recommend that he undergo CT guided drainage of that pelvic fluid.
[2021-05-03 16:01] VITALS: BP 123/82
[2021-05-03 22:00] VITALS: BP 123/79
[2021-05-04] MEDS: NS 1,000 ML IV SCH ×4 (02:52→23:30)
[2021-05-04] MEDS: KETOROLAC 30 MG/ML 1ML VIAL IV SCH ×4 (02:53→20:21)
[2021-05-04] MEDS: PIPERACILLIN/TAZOBACTAM SOD 4.5 GM in D5W MINI-BAG PLUS 50 ML IV SCH ×4 (02:53→20:20)
[2021-05-04] MEDS: RAMELTEON 8 MG TAB (ROZEREM) PO PRN ×2 (03:27→20:21)
[2021-05-04 06:00] VITALS: BP 127/77
[2021-05-04 06:35] LABS: HEMATOCRIT 37.1 % (42.0-52.0); HEMOGLOBIN 11.9 g/dl (13.5-17.5); MEAN CORPUSCULAR HEMOGLOBIN 28.4 pg (27.0-33.0); MEAN CORPUSCULAR HGB CONC 32.1 g/dl (32.0-36.5); MEAN CORPUSCULAR VOLUME 88.5 fl (80.0-96.0); PLATELET COUNT, AUTOMATED 250 10^3/uL (150-450); RED BLOOD COUNT 4.19 10^6/uL (4.30-6.10); WHITE BLOOD COUNT 7.6 10^3/uL (4.0-10.0)
[2021-05-04 06:58] LABS: ALBUMIN 2.4 GM/DL (3.2-5.2); ALT/SGPT 14 U/L (12-78); BILIRUBIN,TOTAL 0.6 MG/DL (0.2-1.0); BLOOD UREA NITROGEN 34 MG/DL (7-18); CALCIUM LEVEL 8.2 MG/DL (8.5-10.1); CARBON DIOXIDE LEVEL 24 MEQ/L (21-32); CHLORIDE LEVEL 113 MEQ/L (98-107); CREATININE FOR GFR 0.91 MG/DL (0.70-1.30); GLOMERULAR FILTRATION RATE > 60.0 (>60); GLUCOSE, FASTING 86 MG/DL (70-100); MAGNESIUM LEVEL 2.4 MG/DL (1.8-2.4); POTASSIUM SERUM 3.6 MEQ/L (3.5-5.1); SODIUM LEVEL 145 MEQ/L (136-145); TOTAL PROTEIN 5.5 GM/DL (6.4-8.2)
--- NOTE | 2021-05-04 08:46 | IPNPDOC ---
Text Note Date of Service The patient was seen on 05/04/21. NOTE General surgery. Dr Nuñez The patient is a 45-year-old male admitted with diverticulitis 05/01/21. The patient is sitting up in bed having clear liquids for breakfast. Denies nausea or vomiting. States abdominal pain continues to improve. Denies distention or bloating. 4 bowel movements yesterday, 1 this morning Afebrile. VSS Sitting up in bed awake and alert S1-S2 regular rate rhythm Lungs clear to auscultation Abdomen is soft, less distended and patient states this is his baseline, mild tenderness with palpation in the left lower quadrant with no grimacing, no guar ding. No edema WBC 7.6 BC x 2 negative. Assessment/plan Acute diverticulitis. The patient is reviewed with Dr. Nuñez The patient is reporting improvement with left lower quadrant pain. Having bowel movements. Tolerating clear liquids this morning. IVF IV antibiotics as per hospitalist Plan to advance diet to low residue diet tomorrow morning if tolerating clear liquids today. Monitor VS,Pedritobone, I+O VS, Marivele, I+O Laboratory Tests 05/04/21 05:39 Vital Signs Date Time Temp Pulse Resp B/P (MAP) Pulse Ox O2 Delivery O2 Flow Rate FiO2 05/04/21 06:00 97.8 52 17 127/77 (94) 95 Room Air I&O- Last 24 Hours up to 6 AM 05/04/21 06:00 Intake Total 2020 ml Output Total 800 ml Balance 1220 ml Hazel Cody May 04, 2021 08:46
[2021-05-04] MEDS: PANTOPRAZOLE 40MG VIAL (C9113 PER 1) IV SCH (09:03)
--- NOTE | 2021-05-04 09:40 | IPNPDOC ---
Subjective Date Seen The patient was seen on 05/04/21. Subjective Chief Complaint/HPI Mr. Drew is a 45 year old male with history of recurrent diverticulitis who is here with acute diverticulitis. This morning, he denies chest pain or dyspnea. Abdominal pain is a little better. He had 4 solid bowel movements and 1 liquid bowl movement yesterday. He is tolerating clear liquid diet today. General surgery advanced diet to low residue. Objective Physical Examination General Exam: Positive: Alert, Cooperative Eye Exam: Positive: EOMI; Negative: Sclera icteric ENT Exam: Positive: Atraumatic Neck Exam: Positive: Supple Chest Exam: Positive: Clear to auscultation Heart Exam: Positive: Rate Normal, Regular Rhythm Abdomen Exam: Positive: Normal bowel sounds, Soft, Tenderness Extremity Exam: Negative: Edema Neuro Exam: Positive: Normal Speech Psych Exam: Positive: Mental status NL, Mood NL Assessment /Plan Assessment Mr. Drew is a 45 year old male with history of recurrent diverticulitis who is here with acute diverticulitis which failed outpatient PO ciprofloxacin and metronidazole. General surgery following. Recommending conservative measures at this time. Plan/VTE VTE Prophylaxis Ordered?: Yes Plan 1. Sepsis 2/2 recurrent diverticulitis -On admission patient had tachycardia and WBC 19 -Patient was given 30mL/kg of IVF and antibiotics -Zosyn day 3 -General surgery advanced diet to low residue today -Continue IV antibiotics 2. Suspected ileus -Seen on CT, No BM for 3 days prior to admission, Possibly secondary to norco -Supportive care -Resolved, patient now having BM 3. GI ppx -Added on IV Protonix 4. DVT ppx -Heparin Disposition: Pending improvement of abdominal pain/tenderness and tolerance of diet VS, I&O, 24H, Fishbone Vital Signs/I&O Vital Signs Date Time Temp Pulse Resp B/P (MAP) Pulse Ox O2 Delivery O2 Flow Rate FiO2 05/04/21 06:00 97.8 52 17 127/77 (94) 95 Room Air I&O- Last 24 Hours up to 6 AM 05/04/21 06:00 Intake Total 2020 ml Output Total 800 ml Balance 1220 ml Laboratory Data 24H LABS Laboratory Tests 2 05/04/21 05:39: Nucleated Red Blood Cells % (auto) 0.0, Anion Gap 8, Glomerular Filtration Rate > 60.0, Calcium Level 8.2L, Magnesium Level 2.4, Total Bilirubin 0.6, Aspartate Amino Transf (AST/SGOT) 7, Alanine Aminotransferase (ALT/SGPT) 14, Alkaline Phosphatase 51, Total Protein 5.5L, Albumin 2.4L, Albumin/Globulin Ratio 0.8 CBC/BMP Laboratory Tests 05/04/21 05:39 Microbiology Microbiology 05/01/21 Urine Culture - Final, Complete 05/01/21 Blood Culture - Preliminary, Resulted No Growth after 48 hours. All Specime... 05/01/21 Blood Culture - Preliminary, Resulted No Growth after 48 hours. All Specime... SUDEEP FRANCISCO DO May 04, 2021 09:40
[2021-05-04] MEDS: ONDANSETRON 4MG/2ML VIAL IV PRN ×2 (13:06→23:31)
[2021-05-04 14:00] VITALS: BP 122/70
--- NOTE | 2021-05-04 15:24 | REP ---
INDICATION: Sharp abdominal pain. COMPARISON: 05/02/2021 also portable FINDINGS: Multiple gas-filled dilated small bowel loops are seen in the abdomen. This has increased from the prior exam. Supine KUB shows no gross free air. IMPRESSION: Small-bowel obstruction which appears to have increased from the prior exam. Consider CT to compare to the prior CT of 05/01/2021 if clinically relevant. <Electronically signed by Nino Saeed > 05/04/21 [id number]
[2021-05-04] MEDS: MORPHINE 2 MG/ML 1ML VIAL (J2270) IV PRN (15:58)
[2021-05-04] MEDS ORDERED: ISOVUE-370 76% 100ML VIAL As Ordered ONE (16:01)
--- NOTE | 2021-05-04 17:46 | REP ---
INDICATION: abd pain, XR demonstrates SBO. COMPARISON: Abdomen/pelvis CT dated 05/01/2021. TECHNIQUE: Abdomen/pelvis CT with IV contrast. FINDINGS: The inflammation in the pericolonic fat at the distal descending colon and sigmoid colon continues to improve. As previously, there is no focal fluid collection to suggest abscess. The volume of ascites in the deep pelvis has almost entirely resolved. However, there is increasing dilatation of the small bowel of proximal small bowel loops with air-fluid levels. The distal small bowel is nondilated as previously. The findings are compatible with small bowel obstruction although I am unable to find a definite transition zone by CT. There is no pneumoperitoneum. There are bibasilar infiltrates in the lower lung mandujano that have not significantly changed. There is a small right pleural effusion seen partially within the inferior portion of the right major fissure. The proximal and mid descending colon demonstrates wall thickening compatible with infectious versus inflammatory colitis in the appropriate clinical setting as a change from the comparison study. The hepatic parenchyma, gallbladder, pancreas are unchanged. Spleen measures 15 cm AP and is enlarged. This is unchanged. The adrenals, kidneys and abdominal aorta are unremarkable. Pelvis: The bladder is unremarkable. There is no adenopathy. IMPRESSION: The sigmoid colon diverticulitis continues to improve. The volume of ascites in the pelvis continues to decrease. However, there is increasing small bowel distention with air-fluid levels compatible with small bowel obstruction. In addition, there is wall thickening of the proximal and mid descending colon as an interval change. This is nonspecific but could represent inflammatory versus infectious colitis in the appropriate clinical setting. <Electronically signed by Ben Justice > 05/04/21 [id number]
[2021-05-04 19:20] VITALS: BP 142/69
[2021-05-05] MEDS: PIPERACILLIN/TAZOBACTAM SOD 4.5 GM in D5W MINI-BAG PLUS 50 ML IV SCH ×4 (03:06→20:18)
[2021-05-05] MEDS: KETOROLAC 30 MG/ML 1ML VIAL IV SCH ×4 (03:06→20:17)
[2021-05-05 06:00] VITALS: BP 136/73
[2021-05-05 06:11] LABS: HEMATOCRIT 37.2 % (42.0-52.0); HEMOGLOBIN 11.9 g/dl (13.5-17.5); MEAN CORPUSCULAR HEMOGLOBIN 28.7 pg (27.0-33.0); MEAN CORPUSCULAR VOLUME 89.9 fl (80.0-96.0); PLATELET COUNT, AUTOMATED 266 10^3/uL (150-450); RED BLOOD COUNT 4.14 10^6/uL (4.30-6.10)
[2021-05-05 06:44] LABS: ALBUMIN 2.3 GM/DL (3.2-5.2); ALT/SGPT 13 U/L (12-78); BILIRUBIN,TOTAL 0.4 MG/DL (0.2-1.0); BLOOD UREA NITROGEN 35 MG/DL (7-18); CALCIUM LEVEL 8.1 MG/DL (8.5-10.1); CARBON DIOXIDE LEVEL 25 MEQ/L (21-32); CHLORIDE LEVEL 114 MEQ/L (98-107); CREATININE FOR GFR 0.84 MG/DL (0.70-1.30); GLOMERULAR FILTRATION RATE > 60.0 (>60); GLUCOSE, FASTING 90 MG/DL (70-100); MAGNESIUM LEVEL 2.2 MG/DL (1.8-2.4); POTASSIUM SERUM 3.6 MEQ/L (3.5-5.1); SODIUM LEVEL 147 MEQ/L (136-145); TOTAL PROTEIN 5.4 GM/DL (6.4-8.2)
[2021-05-05] MEDS: D5W/0.45% SODIUM CHLORIDE 1,000 ML IV SCH ×2 (09:27→18:39)
[2021-05-05] MEDS: PANTOPRAZOLE 40MG VIAL (C9113 PER 1) IV SCH (09:29)
--- NOTE | 2021-05-05 09:53 | IPNPDOC ---
Subjective Date Seen The patient was seen on 05/05/21. Subjective Chief Complaint/HPI Mr. Drew is a 45 year old male with history of recurrent diverticulitis who is here with acute diverticulitis. Yesterday, patient had abdominal pain with N/V. Repeat CT abd/pelvis with IV contrast only demonstrated SBO. Patient was made NPO again. This morning, abdominal pain was improved. He had a solid bowel movement that was green. Here was drops of blood in the toilet bowel and blood on the paper. Abdomen not tender, but it is still firm. Otherwise, patient denies any chest pain or dyspnea. He has bradycardia, will order EKG to evaluate bradycardia. Objective Physical Examination General Exam: Positive: Alert, Cooperative Eye Exam: Positive: EOMI; Negative: Sclera icteric ENT Exam: Positive: Atraumatic Neck Exam: Positive: Supple Chest Exam: Positive: Clear to auscultation Heart Exam: Positive: Rate Normal, Regular Rhythm Abdomen Exam: Positive: Normal bowel sounds; Negative: Soft, Tenderness Extremity Exam: Negative: Edema Neuro Exam: Positive: Normal Speech Psych Exam: Positive: Mental status NL, Mood NL Assessment /Plan Assessment Mr. Drew is a 45 year old male with history of recurrent diverticulitis who is here with acute diverticulitis which failed outpatient PO ciprofloxacin and metronidazole. General surgery following. Continue conservative measures, patient is very anxious about the thought of surgery. Plan/VTE VTE Prophylaxis Ordered?: Yes Plan 1. Sepsis 2/2 recurrent diverticulitis -On admission patient had tachycardia and WBC 19 -Patient was given 30mL/kg of IVF and antibiotics -Zosyn day 4 -Continue bowel rest -Continue IV antibiotics 2. Ileus vs SBO -Supportive care and IV antibiotics -Continue with bowel rest 3. Bradycardia -Patient is not on any rate control agents -Will check an EKG to evaluate -Electrolytes are acceptable 4. GI ppx -Added on IV Protonix 5. DVT ppx -Heparin Disposition: Pending clinical improvement VS, I&O, 24H, Fishbone Vital Signs/I&O Vital Signs Date Time Temp Pulse Resp B/P (MAP) Pulse Ox O2 Delivery O2 Flow Rate FiO2 05/05/21 06:01 44 05/05/21 06:00 97.7 16 136/73 (94) 95 Room Air I&O- Last 24 Hours up to 6 AM 05/05/21 06:00 Intake Total 3105 ml Output Total 1475 ml Balance 1630 ml Laboratory Data 24H LABS Laboratory Tests 2 05/05/21 05:30: Nucleated Red Blood Cells % (auto) 0.0, Anion Gap 8, Glomerular Filtration Rate > 60.0, Calcium Level 8.1L, Magnesium Level 2.2, Total Bilirubin 0.4, Aspartate Amino Transf (AST/SGOT) 7, Alanine Aminotransferase (ALT/SGPT) 13, Alkaline Phosphatase 53, Total Protein 5.4L, Albumin 2.3L, Albumin/Globulin Ratio 0.7 CBC/BMP Laboratory Tests 05/05/21 05:30 Microbiology Microbiology 05/01/21 Urine Culture - Final, Complete 05/01/21 Blood Culture - Preliminary, Resulted No Growth after 72 hours. All specime... 05/01/21 Blood Culture - Preliminary, Resulted No Growth after 72 hours. All specime... SUDEEP FRANCISCO DO May 05, 2021 09:53
[2021-05-05 14:00] VITALS: BP 123/70
[2021-05-05 22:00] VITALS: BP 138/77
[2021-05-06] MEDS: PIPERACILLIN/TAZOBACTAM SOD 4.5 GM in D5W MINI-BAG PLUS 50 ML IV SCH ×4 (02:06→20:46)
[2021-05-06] MEDS: KETOROLAC 30 MG/ML 1ML VIAL IV SCH ×4 (02:06→20:46)
[2021-05-06] MEDS: D5W/0.45% SODIUM CHLORIDE 1,000 ML IV SCH ×2 (02:06→09:13)
[2021-05-06 06:00] VITALS: BP 138/78
[2021-05-06 07:09] LABS: HEMOGLOBIN 12.5 g/dl (13.5-17.5); MEAN CORPUSCULAR HEMOGLOBIN 28.1 pg (27.0-33.0); MEAN CORPUSCULAR HGB CONC 32.1 g/dl (32.0-36.5); MEAN CORPUSCULAR VOLUME 87.6 fl (80.0-96.0); PLATELET COUNT, AUTOMATED 301 10^3/uL (150-450); RED BLOOD COUNT 4.45 10^6/uL (4.30-6.10); WHITE BLOOD COUNT 7.6 10^3/uL (4.0-10.0)
[2021-05-06 07:33] LABS: ALBUMIN 2.3 GM/DL (3.2-5.2); ALT/SGPT 19 U/L (12-78); BILIRUBIN,TOTAL 0.4 MG/DL (0.2-1.0); BLOOD UREA NITROGEN 23 MG/DL (7-18); CALCIUM LEVEL 8.2 MG/DL (8.5-10.1); CARBON DIOXIDE LEVEL 26 MEQ/L (21-32); CHLORIDE LEVEL 110 MEQ/L (98-107); CREATININE FOR GFR 0.79 MG/DL (0.70-1.30); GLOMERULAR FILTRATION RATE > 60.0 (>60); GLUCOSE, FASTING 95 MG/DL (70-100); MAGNESIUM LEVEL 2.1 MG/DL (1.8-2.4); POTASSIUM SERUM 3.1 MEQ/L (3.5-5.1); SODIUM LEVEL 142 MEQ/L (136-145); TOTAL PROTEIN 6.2 GM/DL (6.4-8.2)
[2021-05-06] MEDS: PANTOPRAZOLE 40MG VIAL (C9113 PER 1) IV SCH (09:11)
--- NOTE | 2021-05-06 11:16 | ECGEPIP ---
[facility] Test Date: 2021-05-05 Pat Name: MOISÉS CANTU Department: Room: [place] [address] Gender: Male Database Report Writer: RALPH : 1975 Requested By: USDEEP [place] Order Number: [id number] Reading MD: Perry Jacobs Measurements Intervals [place] Rate: 43 P: 46 TN: 140 QRS: -6 QRSD: 84 T: 8 QT: 514 QTc: 434 Interpretive Statements marked sinus bradycardia Somewhat low voltages with incomplete RBBB, slow precordial R wave progression, and persistent S waves V5 and V6; body habitus versus pulmonary disease Nonspecific ST/T wave abnormalities. No prior tracing for comparison. Clincal correlation advised Electronically Signed on 05-06-2021 11:16:19 EDT by Perry Jacobs
--- NOTE | 2021-05-06 12:35 | IPN ---
PROGRESS NOTE DATE: 05/05/2021 HISTORY: Patient is a 45-year-old man admitted with diverticulitis with a accompanying ileus versus obstruction. He has been maintained on intravenous antibiotics with piperacillin/tazobactam. His diet had been advanced yesterday, but he did not tolerate this well and had some nausea and vomiting. He has had only some few sips of water since then. He reports today that he has no pain and no nausea currently. Vital signs show that he has been afebrile over the past 24 hours. His pulse has been in the 40s and 50s. Blood pressure is good, and his room air oxygen saturations are normal. Intake and output show that yesterday he had 3100 in with 1500 recorded out, 500 of which was emesis. His urine output remains good today. PHYSICAL EXAMINATION: Patient is a pleasant man, lying quietly on the hospital bed. He appears comfortable. Skin is warm and dry. Heart exam shows a regular bradycardia. Lungs are clear. The abdomen is mildly protuberant. He does have some bowel sounds present in all four quadrants. There is some mild tympany to percussion in the mid epigastrium and left upper quadrant area. There is no tenderness to percussion. The abdomen is soft without any significant tenderness identified on palpation. Laboratory studies show a white count of 8000, hemoglobin 12, hematocrit 37, and a platelet count of 270,000. Chemistry profile shows a sodium of 147, potassium 3.6, chloride 114, CO2 of 25, BUN 35, creatinine 0.8, and a glucose of 90. Liver function tests are normal. Last evening, x-rays shows some dilated air-filled loops of small bowel filling the mid and left upper abdomen. A CT scan was obtained, which confirmed some air-filled mild to moderately dilated small bowel loops in the upper abdomen. His pelvic fluid had essentially resolved. The inflammation around the sigmoid colon was diminished, and there was no definite obstruction point identified. IMPRESSION: Diverticulitis with ileus but no definite obstruction by CT yesterday. PLAN: Patient will be started on some clear liquids. He was advised that he should sip small amounts to ensure that these are being adequately tolerated before we advance him. He reports that he has had a large amount of flatus. We will give his ileus at least another day to resolve, and hopefully tomorrow we will be able to advance his diet. ESTELA
[2021-05-06] MEDS ORDERED: POTASSIUM CHLORIDE 10 MEQ SR TABLET PO ONE (13:00)
--- NOTE | 2021-05-06 13:47 | IPNPDOC ---
Subjective Date Seen The patient was seen on 05/06/21. Subjective Chief Complaint/HPI Mr. Drew is a 45 year old male with history of recurrent diverticulitis who is here with acute diverticulitis. Yesterday, he was able to tolerate his clear liquid diet. This morning, he denies chest pain or dyspnea. Abdominal pain is improved and abdomen is more soft compared to yesterday. Encourage patient to ambulate. Objective Physical Examination General Exam: Positive: Alert, Cooperative Eye Exam: Positive: EOMI; Negative: Sclera icteric ENT Exam: Positive: Atraumatic Neck Exam: Positive: Supple Chest Exam: Positive: Clear to auscultation Heart Exam: Positive: Bradycardic, Regular Rhythm Abdomen Exam: Positive: Normal bowel sounds; Negative: Soft, Tenderness Extremity Exam: Negative: Edema Neuro Exam: Positive: Normal Speech Psych Exam: Positive: Mental status NL, Mood NL Assessment /Plan Assessment Mr. Drew is a 45 year old male with history of recurrent diverticulitis who is here with acute diverticulitis which failed outpatient PO ciprofloxacin and metronidazole. General surgery following. Continue supportive care and IV antibiotics Plan/VTE VTE Prophylaxis Ordered?: Yes Plan 1. Sepsis 2/2 recurrent diverticulitis -On admission patient had tachycardia and WBC 19 -Patient was given 30mL/kg of IVF and antibiotics -Zosyn day 5 -Continue IV antibiotics 2. Ileus vs SBO -Supportive care and IV antibiotics -Improved 3. Bradycardia -Patient is not on any rate control agents -EKG demonstrates sinus elinor. Does increase with activity. Patient is asymptomatic. -Will check TSH -Will order echocardiogram 4. GI ppx -Added on IV Protonix 5. DVT ppx -Heparin Disposition: Pending clinical improvement VS, I&O, 24H, [facility] Vital Signs/I&O Vital Signs Date Time Temp Pulse Resp B/P (MAP) Pulse Ox O2 Delivery O2 Flow Rate FiO2 05/06/21 06:00 97.8 48 20 138/78 (98) 95 Room Air I&O- Last 24 Hours up to 6 AM 05/06/21 06:00 Intake Total 1437.5 ml Output Total 400 ml Balance 1037.5 ml Laboratory Data 24H LABS Laboratory Tests 2 05/06/21 06:10: Nucleated Red Blood Cells % (auto) 0.0, Anion Gap 6L, Glomerular Filtration Rate > 60.0, Calcium Level 8.2L, Magnesium Level 2.1, Total Bilirubin 0.4, Aspartate Amino Transf (AST/SGOT) 15, Alanine Aminotransferase (ALT/SGPT) 19, Alkaline Phosphatase 49, Total Protein 6.2L, Albumin 2.3L, Albumin/Globulin Ratio 0.6 CBC/BMP Laboratory Tests 05/06/21 06:10 Microbiology Microbiology 05/01/21 Urine Culture - Final, Complete 05/01/21 Blood Culture - Preliminary, Resulted No Growth after 72 hours. All specime... 05/01/21 Blood Culture - Preliminary, Resulted No Growth after 72 hours. All specime... SUDEEP FRANCISCO DO May 06, 2021 13:47
--- NOTE | 2021-05-06 13:52 | IPN ---
PROGRESS NOTE DATE: 05/06/2021 HISTORY: Patient was admitted on May 01, 2021 for diverticulitis with an accompanying ileus versus obstruction. Yesterday, he was advanced to some sips of clear liquids and he reports that he tolerated these well and actually took more than sips. He has been up ambulating in the hallway. He reports he has been passing gas and has had some bowel movements. He is having no pain or nausea at this point. PHYSICAL EXAMINATION: VITAL SIGNS: Show that he has been afebrile over the past 24 hours. His pulse was in the 40s regularly. His blood pressure is good and his room air oxygen saturation is normal. INTAKE AND OUTPUT: Show that yesterday he had 2100 mL in with 1600 mL out. He had 575 mL of urine output recorded, but I suspect there was some that was unrecorded. He has had no further emesis. GENERAL: Patient is lying quietly on the bed watching television and visiting with a family member. He is alert and oriented. SKIN: Warm and dry. HEART EXAM: Shows a regular bradycardia. LUNGS: Clear. ABDOMEN: Seems flatter today than yesterday. There is no tympany to percussion in the epigastrium today. There is no tenderness to percussion. He has active bowel sounds and the abdomen is soft throughout. LABORATORY STUDIES: Today show a white count of 8, hemoglobin 12, hematocrit 39 and a platelet count of 300,000. Chemistry profile shows sodium of 142, potassium 3.1, chloride 110, CO2 of 26, BUN of 23, creatinine 0.8 and a glucose of 95. Liver function tests are normal. IMPRESSION: Patient has no pain or nausea at this point. He reports he has been having flatus and bowel function. The abdomen is soft and nontender. He appears to have resolved his ileus. PLAN: Patient will be advanced to a regular diet. He was advised to stick with relatively low fiber foods for the first few days or week to ensure that he is able to have bowel function without significant evidence of narrowing in the area of the diverticulitis. I will saline-lock his intravenous (IV), as I believe he will take adequate liquids orally. If he tolerates his diet, then I believe we should discharge him to continue the ciprofloxacin and Flagyl that he had been prescribed before admission. ESTELA
[2021-05-06 14:00] VITALS: BP 145/80
[2021-05-06 21:02] VITALS: BP 121/75
[2021-05-07] MEDS: PIPERACILLIN/TAZOBACTAM SOD 4.5 GM in D5W MINI-BAG PLUS 50 ML IV SCH ×2 (02:28→08:08)
[2021-05-07] MEDS: KETOROLAC 30 MG/ML 1ML VIAL IV SCH (02:28)
[2021-05-07 06:00] VITALS: BP 117/69
[2021-05-07 06:36] LABS: HEMATOCRIT 40.5 % (42.0-52.0); HEMOGLOBIN 13.5 g/dl (13.5-17.5); MEAN CORPUSCULAR HEMOGLOBIN 28.9 pg (27.0-33.0); MEAN CORPUSCULAR HGB CONC 33.3 g/dl (32.0-36.5); MEAN CORPUSCULAR VOLUME 86.7 fl (80.0-96.0); PLATELET COUNT, AUTOMATED 314 10^3/uL (150-450); RED BLOOD COUNT 4.67 10^6/uL (4.30-6.10); WHITE BLOOD COUNT 10.3 10^3/uL (4.0-10.0)
[2021-05-07 07:14] LABS: ALBUMIN 2.4 GM/DL (3.2-5.2); ALT/SGPT 25 U/L (12-78); BILIRUBIN,TOTAL 0.8 MG/DL (0.2-1.0); BLOOD UREA NITROGEN 18 MG/DL (7-18); CALCIUM LEVEL 8.2 MG/DL (8.5-10.1); CARBON DIOXIDE LEVEL 26 MEQ/L (21-32); CHLORIDE LEVEL 107 MEQ/L (98-107); CREATININE FOR GFR 0.83 MG/DL (0.70-1.30); GLOMERULAR FILTRATION RATE > 60.0 (>60); GLUCOSE, FASTING 91 MG/DL (70-100); MAGNESIUM LEVEL 1.9 MG/DL (1.8-2.4); POTASSIUM SERUM 3.6 MEQ/L (3.5-5.1); SODIUM LEVEL 140 MEQ/L (136-145); TOTAL PROTEIN 5.6 GM/DL (6.4-8.2)
[2021-05-07] MEDS: PANTOPRAZOLE 40MG VIAL (C9113 PER 1) IV SCH (08:08)
--- NOTE | 2021-05-07 22:15 | DS.PDOC ---
Discharge Summary General Date of Admission May 01, 2021 at 23:11 Date of Discharge May 07, 2021 Specialist/Consultants Involve General Surgery, Dr. Nuñez and Dr. Lyon Discharge Summary PROCEDURES PERFORMED DURING STAY: None ADMITTING DIAGNOSES: 1. Sepsis secondary to acute recurrent diverticulitis 2. Acute recurrent diverticulitis 3. SBO DISCHARGE DIAGNOSES: 1. Sepsis secondary to acute recurrent diverticulitis 2. Acute recurrent diverticulitis 3. SBO 4. Sinus bradycardia COMPLICATIONS/CHIEF COMPLAINT: Diverticulitis. HISTORY OF PRESENT ILLNESS: Copied from admitting attending's H&P " 45-year-old male with a past medical history of recurrent diverticulitis presents to the ER with a weeklong history of left lower quadrant abdominal pain. He was recently seen on 04/29/21 with the same symptoms. CT scan showing likely diverticulitis/colitis. Patient was discharged with a course of Cipro, ofloxacin and Flagyl along with pain control with [place], but returns because of worsening pain as well as nausea. Patient also states he hasn't had a bowel movement since last ER visit. Patient has white count of 19, low-grade temperature of 99.5. Reticulocyte acid 1.1. Noted to have elevated bilirubin of 1.1 with a direct bilirubin of 0.3. Lipase 72. Dr. Nuñez was consulted from the ER. Patient was treated with sepsis protocol. Started on IV Zosyn as well as 3 L of sodium chloride bolus. Dr. Nuñez also recommended a one-time dose of ceftriaxone. Patient will be admitted to hospitalist service for the management of sepsis and diverticulitis. " HOSPITAL COURSE: General surgery evaluated patient and recommended conservative care with IV antibiotics, bowel rest, and supportive care. Patient was made NPO with sips and chips and given IV ciprofloxacin and IV metronidazole. Imaging had demonstrated SBO and attempted NGT. He did not tolerate the NGT well and was kept NPO. His abdominal pain gradually subsided, and he started to have BM. On 05/04/21, his diet was advanced to low residue. He was not able to tolerate the low residue and started to have N/V. CT abd/pelvis demonstrated SBO. Patient was made NPO again. This time, his heart rate became sinus bradycardia. Patient denied any chest pain. When he ambulated, his heart rate improved up to 77. We continued to monitor his sinus bradycardia. He was able to have a bowel movement and his diet was advanced up to low residue diet. He was able to tolerated a low residue diet today, and his sinus bradycar rios had resolved. Today, he felt ready for home and was subsequently discharged home. 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 ALLERGIES: Please see below. PHYSICAL EXAMINATION ON DISCHARGE: VITAL SIGNS: Please see below. GENERAL: Comfortable, in no apparent distress HEENT: Head normocephalic, atraumatic NECK: Supple CARDIOVASCULAR EXAMINATION: Regular rate and rhythm RESPIRATORY EXAMINATION: Lungs clear to auscultation bilaterally ABDOMINAL EXAMINATION: Soft, non-tender, normal bowel sounds EXTREMITIES: No pitting edema bilaterally SKIN: Warm and dry NEUROLOGICAL EXAMINATION: Normal speech PSYCHIATRIC EXAMINATION: Normal mood and affect LABORATORY DATA: Please see below. IMAGING: Radiologist interpretation CT abd/pelvis with IV contrast 1. Persistent changes of diverticulitis in the sigmoid colon. Pelvic free fluid has increased slightly. No loculated abscess or pneumoperitoneum. 2. Fluid distention of the colon and small bowel suggesting an ileus or viral ileocolitis. KUB Gas-filled small bowel loops with paucity of small bowel gas in the right abdomen, evidence for small bowel obstruction with transition in the pelvis. Repeat CT abd/pelvis with IV contrast The sigmoid colon diverticulitis continues to improve. The volume of ascites in the pelvis continues to decrease. However, there is increasing small bowel distention with air-fluid levels compatible with small bowel obstruction. In addition, there is wall thickening of the proximal and mid descending colon as an interval change. This is nonspecific but could represent inflammatory versus infectious colitis in the appropriate clinical setting. PROGNOSIS: Good ACTIVITY: As tolerated. DIET: Low Residue Diet DISCHARGE PLAN: Home DISPOSITION: Home, Self-Care. DISCHARGE INSTRUCTIONS: 1. Follow up with PCP in 1 week DISCHARGE CONDITION: Stable Total time spent on discharge planning, discharge summary, and medication reconciliation: 45 minutes Vital Signs/I&Os Vital Signs Date Time Temp Pulse Resp B/P (MAP) Pulse Ox O2 Delivery O2 Flow Rate FiO2 05/07/21 06:00 98.0 73 18 117/69 (85) 97 Room Air I&O- Last 24 Hours up to 6 AM 05/07/21 06:00 Intake Total 630 ml Output Total 1200 ml Balance -570 ml Laboratory Data Labs 24H Laboratory Tests 2 8/15/21 06:17: Nucleated Red Blood Cells % (auto) 0.0, Anion Gap 7L, Glomerular Filtration Rate > 60.0, Calcium Level 8.2L, Magnesium Level 1.9, Total Bilirubin 0.8#, Aspartate Amino Transf (AST/SGOT) 17, Alanine Aminotransferase (ALT/SGPT) 25, Alkaline Phosphatase 54, Total Protein 5.6L, Albumin 2.4L, Albumin/Globulin Ratio 0.8, Thyroid Stimulating Hormone (TSH) 3.150 CBC/BMP Laboratory Tests 05/07/21 06:17 Microbiology Microbiology 05/01/21 Urine Culture - Final, Complete 05/01/21 Blood Culture - Final, Complete NO GROWTH AFTER 5 DAYS 05/01/21 Blood Culture - Final, Complete NO GROWTH AFTER 5 DAYS Discharge Medications Scheduled Ciprofloxacin HCl (Cipro) 500 Mg Tablet, 500 MG PO BID, (Reported) STARTED ON 04/30/21 Metronidazole (Flagyl) 500 Mg Tablet, 500 MG PO Q8H, (Reported) STARTED ON 04/30/21 Scheduled PRN Hydrocodone/Acetaminophen (Hydrocodone-Acetamin 5-325 mg) 1 Each Tablet, 1 TAB PO Q6H PRN for PAIN LEVEL 6-10, (Reported) Ondansetron (Ondansetron Odt) 4 Mg Tab.rapdis, 4 MG PO Q6H PRN for NAUSEA OR VOMITING, (Reported) Allergies Coded Allergies: No Known Allergies (Unverified , 04/17/19) SUDEEP FRANCISCO DO May 07, 2021 22:15
== END 2021-05-07 09:44 | disposition home or self-care (01) | DRG 872 ==
LOC: M ED 15:06 → M ED INP 23:11 → ENRESERVTM 05-02 00:28 → ENRESERVDT 05-02 00:28 → M PCU 05-02 01:51 → M MSPAV 05-03 16:08
PROVIDERS: ADMIT Family Medicine; ATTEND Internal Medicine
DX: A41.9 Sepsis, unspecified organism (principal); K57.92 Diverticulitis of intestine, part unspecified, without perforation or abscess without bleeding; K56.7 Ileus, unspecified; R00.1 Bradycardia, unspecified

== ENCOUNTER → 2021-05-08 | Outpatient (CLI) | payer OTHER ==
[~2021-05-08] MED LIST changes: +HYDR-4571 PO
[2021-05-08 18:12] LABS: BASO % 0.2 % (0.0-1.0); EOS # 0.1 10^3/uL (0.0-0.5); EOS % 1.1 % (0.0-3.0); HEMATOCRIT 42.4 % (42.0-52.0); HEMOGLOBIN 13.7 g/dl (13.5-17.5); LYMPH # 0.5 10^3/uL (1.5-5.0); LYMPH % 4.7 % (24.0-44.0); MEAN CORPUSCULAR HEMOGLOBIN 28.1 pg (27.0-33.0); MEAN CORPUSCULAR HGB CONC 32.3 g/dl (32.0-36.5); MEAN CORPUSCULAR VOLUME 86.9 fl (80.0-96.0); MONO # 0.7 10^3/uL (0.0-0.8); MONO % 5.9 % (2.0-8.0); NEUTROPHILS # 10.1 10^3/uL (1.5-8.5); NEUTROPHILS % 87.2 % (36.0-66.0); PLATELET COUNT, AUTOMATED 358 10^3/uL (150-450); RED BLOOD COUNT 4.88 10^6/uL (4.30-6.10); WHITE BLOOD COUNT 11.6 10^3/uL (4.0-10.0)
[2021-05-08 18:56] LABS: ALBUMIN 2.5 GM/DL (3.2-5.2); ALT/SGPT 34 U/L (12-78); BILIRUBIN,TOTAL 0.7 MG/DL (0.2-1.0); BLOOD UREA NITROGEN 24 MG/DL (7-18); CALCIUM LEVEL 8.3 MG/DL (8.5-10.1); CARBON DIOXIDE LEVEL 27 MEQ/L (21-32); CHLORIDE LEVEL 105 MEQ/L (98-107); CREATININE FOR GFR 1.11 MG/DL (0.70-1.30); GLOMERULAR FILTRATION RATE > 60.0 (>60); GLUCOSE, FASTING 108 MG/DL (70-100); POTASSIUM SERUM 3.8 MEQ/L (3.5-5.1); SODIUM LEVEL 137 MEQ/L (136-145); TOTAL PROTEIN 6.2 GM/DL (6.4-8.2)
== END ==
LOC: M LAB 17:38
PROVIDERS: ATTEND Nurse Practitioner Family
DX: K57.92 Diverticulitis of intestine, part unspecified, without perforation or abscess without bleeding (principal)
CPT/HCPCS: 36415; 80053; 85025; 86140; G0463

== ENCOUNTER → 2021-06-02 | Outpatient (CLI) | payer OTHER ==
--- NOTE | 2021-06-06 17:01 | SLEEPHOME ---
DATE: 06/02/2021 ORDERED BY: Alva Grace Diagnostic home sleep testing was performed for re-evaluation of this patient with a prior history of obstructive sleep apnea syndrome who has accomplished significant weight loss. For testing, a nocturnal T3 respiratory monitoring device was used. Continuous record was made of pulse, oxygen saturation, air flow, chest and abdominal strain, and body position. There was 9 houors and 59 minutes of data reviewed. There was 7 hours and 58 minutes marked as time in bed. During the interval marked time in bed, there were only 13 respiratory events identified of 10 seconds in duration or greater, and these were seen primarily in the supine posture. Events were primarily hypopneic. Baseline pulse rate 59. Pulse rate ranged 47-172. Baseline saturation was 93%. Saturations briefly fell to 82%. Testing was performed in both the supine and nonsupine positions. IMPRESSION: Normal diagnostic home sleep testing with minor respiratory patterning in the supine position.
== END ==
LOC: M SLEEP HO 11:55
PROVIDERS: ATTEND Nurse Practitioner Family
DX: G47.33 Obstructive sleep apnea (adult) (pediatric) (principal)

== ENCOUNTER → 2023-05-24 | Outpatient (CLI) | payer OTHER ==
[2023-05-24 14:30] LABS: BASO # 0.1 10^3/uL (0.0-0.2); BASO % 0.4 % (0.0-1.0); EOS # 0.2 10^3/uL (0.0-0.5); EOS % 1.3 % (0.0-3.0); HEMATOCRIT 45.4 % (42.0-52.0); HEMOGLOBIN 14.7 g/dl (13.5-17.5); LYMPH # 1.5 10^3/uL (1.5-5.0); LYMPH % 11.6 % (24.0-44.0); MEAN CORPUSCULAR HEMOGLOBIN 28.5 pg (27.0-33.0); MEAN CORPUSCULAR HGB CONC 32.4 g/dl (32.0-36.5); MONO # 1.2 10^3/uL (0.0-0.8); MONO % 8.8 % (2.0-8.0); NEUTROPHILS # 10.3 10^3/uL (1.5-8.5); NEUTROPHILS % 77.5 % (36.0-66.0); PLATELET COUNT, AUTOMATED 314 10^3/uL (150-450); RED BLOOD COUNT 5.16 10^6/uL (4.30-6.10); WHITE BLOOD COUNT 13.3 10^3/uL (4.0-10.0)
[2023-05-24 14:38] LABS: APPEARANCE, URINE HAZY (CLEAR); BACTERIA, URINE AUTO 1+ (NEGATIVE); BILIRUBIN, URINE AUTO NEGATIVE (NEGATIVE); BLOOD, URINE BLOOD 1+ (NEGATIVE); COLOR, URINE YELLOW (YELLOW); GLUCOSE, URINE (UA) AUTO NEGATIVE (NEGATIVE); KETONE, URINE AUTO NEGATIVE (NEGATIVE); LEUKOCYTE ESTERASE, URINE AUTO 2+ (NEGATIVE); MUCUS, URINE SMALL (NEGATIVE); NITRITE, URINE AUTO NEGATIVE (NEGATIVE); PROTEIN, URINE AUTO NEGATIVE (NEGATIVE); RBC, URINE AUTO 4 /HPF (0-3); SPECIFIC GRAVITY URINE AUTO 1.016 (1.002-1.035); SQUAMOUS EPITHELIAL CELL UR AU 1 /HPF (0-6); UROBILINOGEN, URINE AUTO 0.2 mg/dL (0.0-2.0); WBC, URINE AUTO 72 /HPF (0-3)
[2023-05-24 14:49] LABS: BLOOD UREA NITROGEN 21 MG/DL (9-23); CALCIUM LEVEL 8.8 MG/DL (8.5-10.1); CARBON DIOXIDE LEVEL 28 MMOL/L (20-31); CHLORIDE LEVEL 105 MMOL/L (98-107); GLOMERULAR FILTRATION RATE > 60.0 (>60); GLUCOSE, FASTING 64 MG/DL (60-100); POTASSIUM SERUM 4.3 MMOL/L (3.5-5.1); SODIUM LEVEL 142 MMOL/L (136-145)
[2023-05-26 12:07] LABS: PSA % FREE 9.3 % (.); PSA FREE 0.7 ng/mL; PSA TOTAL 7.5 ng/mL (0.0-4.0)
== END ==
LOC: M PLALAB 11:39
PROVIDERS: ATTEND Nurse Practitioner Family
DX: R35.0 Frequency of micturition (principal)
CPT/HCPCS: 36415; 51798; 80048; 81001; 84154; 85025; 86140; 87088; 87186; G0463

== ENCOUNTER → 2024-07-28 | Outpatient (REF) | payer OTHER ==
[~2024-07-28] MED LIST changes: +ONDA-282 PO; -ONDA4TAB6 PO
[2024-07-28 18:54] LABS: BASO # 0.1 10^3/uL (0.0-0.2); BASO % 0.6 % (0.0-1.0); EOS # 0.3 10^3/uL (0.0-0.5); EOS % 3.2 % (0.0-3.0); HEMATOCRIT 47.3 % (42.0-52.0); HEMOGLOBIN 15.3 g/dl (13.5-17.5); LYMPH # 2.4 10^3/uL (1.5-5.0); LYMPH % 27.6 % (24.0-44.0); MEAN CORPUSCULAR HEMOGLOBIN 28.3 pg (27.0-33.0); MEAN CORPUSCULAR HGB CONC 32.3 g/dl (32.0-36.5); MEAN CORPUSCULAR VOLUME 87.4 fl (80.0-96.0); MONO # 0.8 10^3/uL (0.0-0.8); MONO % 9.5 % (2.0-8.0); NEUTROPHILS # 5.1 10^3/uL (1.5-8.5); NEUTROPHILS % 58.6 % (36.0-66.0); PLATELET COUNT, AUTOMATED 300 10^3/uL (150-450); RED BLOOD COUNT 5.41 10^6/uL (4.30-6.10); WHITE BLOOD COUNT 8.7 10^3/uL (4.0-10.0)
[2024-07-28 19:20] LABS: PSA SCREENING 0.61 NG/ML (< 4.00)
[2024-07-28 19:27] LABS: ALBUMIN 4.1 G/DL (3.2-5.2); ALKALINE PHOSPHATASE 79 U/L (40-129); ALT/SGPT 52 U/L (7.0-40); AST/SGOT 21 U/L (<34); BILIRUBIN,TOTAL 0.3 MG/DL (0.3-1.2); BLOOD UREA NITROGEN 23 MG/DL (9-23); CALCIUM LEVEL 9.2 MG/DL (8.5-10.1); CARBON DIOXIDE LEVEL 30 MMOL/L (20-31); CHLORIDE LEVEL 104 MMOL/L (98-107); CHOLESTEROL LEVEL 201 MG/DL (<200); CHOLESTEROL RISK RATIO 5.12 (<5); CREATININE FOR GFR 1.05 MG/DL (0.70-1.30); GLOMERULAR FILTRATION RATE > 60.0 (>60); GLUCOSE, FASTING 70 MG/DL (60-100); HDL CHOLESTEROL 39.2 MG/DL (>40); HEMOGLOBIN A1c 5.9 % (4.0-6.0); LDL CHOLESTEROL 106.6 MG/DL (<100); NON-HDL-C 161.8 MG/DL; POTASSIUM SERUM 4.1 MMOL/L (3.5-5.1); SODIUM LEVEL 142 MMOL/L (136-145); TOTAL PROTEIN 7.4 G/DL (5.7-8.2); TRIGLYCERIDES LEVEL 276 MG/DL (<150)
== END ==
LOC: M SFHCPLAZ 17:03
PROVIDERS: ATTEND Nurse Practitioner Family
DX: Z00.00 Encounter for general adult medical examination without abnormal findings (principal); R73.09 Other abnormal glucose; E78.2 Mixed hyperlipidemia; Z12.5 Encounter for screening for malignant neoplasm of prostate
CPT/HCPCS: 36415; 80053; 80061; 83036; 85025; G0103

== ENCOUNTER → 2025-07-29 | Outpatient (CLI) | payer OTHER ==
[2025-07-29 17:37] LABS: BASO # 0.1 10^3/uL (0.0-0.2); BASO % 0.7 % (0.0-1.0); EOS # 0.2 10^3/uL (0.0-0.5); EOS % 3.1 % (0.0-3.0); LYMPH # 2.2 10^3/uL (1.5-5.0); LYMPH % 28.8 % (24.0-44.0); MONO # 0.7 10^3/uL (0.0-0.8); MONO % 9.4 % (2.0-8.0); NEUTROPHILS # 4.4 10^3/uL (1.5-8.5); NEUTROPHILS % 57.7 % (36.0-66.0); PLATELET COUNT, AUTOMATED 279 10^3/uL (150-450)
[2025-07-29 17:53] LABS: ESTIMATED AVERAGE GLUCOSE 120.0 MG/DL (60-110)
[2025-07-29 18:03] LABS: ALT/SGPT 38.0 U/L (7.0-40); AST/SGOT 29.0 U/L (<34); CALCIUM LEVEL 8.6 MG/DL (8.5-10.1); CARBON DIOXIDE LEVEL 29.0 MMOL/L (20-31); CHLORIDE LEVEL 105.0 MMOL/L (98-107); CHOLESTEROL LEVEL 157.0 MG/DL (<200); CHOLESTEROL RISK RATIO 4.34 (<5); CREATININE FOR GFR 1.04 MG/DL (0.70-1.30); GLOMERULAR FILTRATION RATE 88.0 (>60); LDL CHOLESTEROL 81.9 MG/DL (<100); NON-HDL-C 120.9 MG/DL; POTASSIUM SERUM 4.3 MMOL/L (3.5-5.1); PSA SCREENING 0.67 NG/ML (< 4.00); SODIUM LEVEL 142.0 MMOL/L (136-145); TRIGLYCERIDES LEVEL 195.0 MG/DL (<150)
[2025-07-29 18:05] LABS: FREE T4 1.24 NG/DL (0.89-1.76)
== END ==
LOC: M PLALAB 16:20
PROVIDERS: ATTEND Nurse Practitioner Family
DX: Z00.00 Encounter for general adult medical examination without abnormal findings (principal); E78.2 Mixed hyperlipidemia; R73.09 Other abnormal glucose; Z12.5 Encounter for screening for malignant neoplasm of prostate
CPT/HCPCS: 36415; 80053; 80061; 83036; 84439; 84443; 85025; G0103